=== PATIENT | male | born 1955 | race Caucasian/White ===

== ENCOUNTER 2025-09-03 11:17 | Outpatient (OUT) | payer MEDICARE, OTHER, SELFPAY ==
--- OUTSIDE RECORDS SUMMARY | 2025-09-02 10:13 | XMS_ITS | Continuity of Care Document ---
Author Organization [facility] Address [address] [place] [address] Phone Care Team Providers Care Second Vp Hr Assessment Name Role Phone Thierno Nesbitt DO Primary Care Provider Thierno Nesbitt DO Attending Provider Care Teams Patient Care Team Team Status: Active Member Role/Relationship Status Dates Thierno Nesbitt DO Primary Care Provider Active Patient Care Team Team Status: Inactive Member Role/Relationship Status Dates Thierno Nesbitt DO Primary Care Provider Active Start: September 02, 2025 End: September 02enjadivya Nesbitt DOAttending ProviderActiveStart: September 02, 2025 End: September 02, 2025 Chief Complaint and Reason for Visit Chief Complaint Admit Date Dizzy, Tired, Cov Neg September 02 2:15pm Reason for Visit Admit Date Chronic kidney disease September 02 2:15pm Heart failure with improved ejection fra ction (HFimpEF) September 02, 2025 2:15pm Nonischemic cardiomyopathy August 2:15pm PKD (polycystic kidney disease) September 02, 2025 2:15pm Allergies, Adverse Reactions, Alerts Allergen Type Severity Reaction Last Updated Verified Status No Known Allergies Allergy Unknown September 02, 2025 2:29pmYesActive Social History Smoking Status Status Start Date End Date Date of Observa tion Ex-smoker (finding) March 28, 2025 8:29am Observation Status Observation Response Date of Response Legal Sex Male (finding) Sex Assigned At [facility] 1955 Family History Relationship Condition Age at Onset Recorded Date/T janelle mother History of heart surgery Unknown Coronary artery diseaseUnknownHeart diseaseUnknownfatherCoronary artery disease UnknownMyocardial infarctionUnknownHypertensionUnknownHeart diseaseUnknown DeceasedUnknownbrotherHeart diseaseUnknownsisterDeceasedUnknownMultiple sclerosisUnknown Problems Active Problems Problem Diagnosis/Recorded Date Onset Date Status C omments Nicotine addiction March 25, 2024 5:01pm Unknown Activ e LDCT w/o suspicious nodules: 05/2023. 07/2024 Heart failure with improved ejection fraction (HFimpEF) September 18, 2024 9:10am Unknown Active Ec ho: LVEF 55%, dilated RV w/ normal function, RVSP - 04/2023 Encounter for screening for malignant neoplasm of prostate March 27, 2024 2:04pm Unknown Active Screening for colon cancerJune 2024 8:35amUnknownActivePKD (polycystic kidney disease)October 15, 2022 8:32amUnknownActiveAbdominal aortic aneurysm September 16, 2024 9:11amUnknownActiveCT: 3.9cm - 2021HypercholesterolemiaJune 2023 5:05pmUnknownActiveNonischemic cardiomyopathyFebruary 2024 5:04pmUnknownActiveLHC: trivial CAD - hronic kidney diseaseJune 2023 4:55pmUnknownActiveAscending aortic aneurysmFebruary 2024 5:03pm UnknownActiveEcho: 4.5cm - olon polypsMarch 2023 6:12amUnknown Active Medications Medication Status Dose Units Route Directions Qty Days Refills S tart Date Stop Date End Date Reason(s) Instructions Adherence Sod Picosulf-Mag Ox-Citric Ac (Clenpiq) 10 mg-3.5 gram- 12 gram/175 mL solution Discontinued 175 ML PO Daily 1 1 0 Ma [facility] 2023 11:00pm August 14, 2024 9:06amplease follow instructions provided by Dr. Lemus's office.Multivitamin WzijncZfcazp0BEMCNCuywwYbbkpuw 2022 12:00amComplies with drug therapyFurosemide 40 mg aekmcvXjlmbgerxjfw30BDVMIbmutStwiowy 2022 12:00amJune 2023 2:03pmCarvedilol 12.5 mg qvrhmwQzysyy97.5MGPOTwice daily October 15, 2022 12:00amComplies with drug therapyLisinopril 20 mg tablet Fzfrwlcinhpw97JEXFYjcrn dailyJanuary 2022 12:00amMarch 2023 6:01am Spironolactone 25 mg thbijpLmnngk06.5MGPODailyJanuary 2022 12:00amComplies with drug therapyEmpagliflozin (Jardiance) 10 mg xjpucqAuqijj15UDULTcxkh evening October 15, 2022 12:00amComplies with drug therapySacubitril-Valsartan (Entresto) 24-26 mg nfcryyFxcdly7ZDVYUPsscg dailyJanuary 2022 12:00amPt has medication but has not started taking yetComplies with drug therapyAspirin 81 mg ZsnnspvVexuis72OEGNTquvbFnouxto 2022 12:00amComplies with drug therapy Furosemide 40 mg ntxwefHvtnzooouoji81NNLG.QODJune 2023 1:53pmMay 2024 7:52amAmoxicillin-Pot Clavulanate 875-125 mg xiugnvKaxmxecifblh6FVANYLtzif 12 ihsxh7100Jxgs2023 11:00pmNov2023 9:04amAmoxicillin 875 mg hstezqUfobqe721XFGMJnkhr bhgzd5385Eajpmmdi2024 12:00amComplies with drug xushyurUgofxlow-Nuyqxzdae-He 3.5-10,000-1 mg/mL-unit/mL-% drops,suspensionActive 4DROPSOTICEvery 8 qepkj2614Vqoapxhk2024 12:00amComplies with drug therapy Immunizations Immunization Event Date Not Given Reason Dose Number Corporate Attorney Lot Number Reason(s) Given Vaccine Information Statement (VIS) Detail Administration Location COVID-19 Ad26.COV2.S ([employer]) December 13, 2020 COVID-19 Ad26.COV2.S ([employer])August 04, 2021Influenza vaccine, quadrivalent, [id number] vaccine, quadrivalent, adjuvanted September 19, 2023influenza, unspecified formulationOctober 2020 influenza, unspecified formulationDecember 2021influenza, unspecified formulationDecember neumococcal Conjugate Vaccine, 20 valentDeceer 2022 Vital Signs Vital Reading Result Reference Range Collection Date/Time Height 70 [in_i] September 02, 2025 2:89gaAcofhw22.27 kgNov2024 2:33pmHeart Rate97 /xhz88-492XoaavvtySeptember 02, 2025 2:33pmRespiratory rate12 /vay29-97Zffkddhs 24th, 2025 2:33pmBP Vevigann24 mm[Hg]100-140September 02, 2025 2:33pmBP Uwwcflksf46 mm[Hg]60-100September 02, 2025 2:33pmBMI (Body Mass Index)22.5 kg/q6Khrzuekf2024 2:33pm Advance Directives Advance Directive Response Recorded Date/ Time Advance Directives No October 12, 2022 12:11pm Insurance Providers Guarantor Abel Solomon Address [address] [place] [id number] Info.Home Phone: Payer Group Member ID Coverage Type Subscriber Relationship to Subscriber Effective Date Expiration Date MMO Retired Id: [id number] Beck , D Id: [id number] [facility] Home Phone: Email: [id number] Beck , D Id: [id number] [facility] Home Phone: Email: [email or web address] Encounters Encounter Location(s) Arrival/Admit Date Discharge/Departure Date Discharge/Departure Disposition Provider(s) Departed Physician/ Provider Office Visit -[facility] September 02, 2025 2:15pm September 02, 2025 3:12pm Discharged to home care or self care (routine discharge) Thierno Nesbitt DO Recent Diagnosis Onset Date Admit Date Chronic kidney disease Unknown September 02, 2025 2:15pm Heart failure with improved ejection fraction (HFimpEF) Unknown September 02, 2025 2:15pm Nonischemic cardiomyopathy Unknown 2024 2:15pm PKD (polycystic kidney disease) Unknown September 02, 2025 2:15pm Assessments Diagnosis Onset Date Resolution Status Admit Date Chronic kidney disease acuteNovember 2024 2:15pmHeart failure with improved ejection fraction (HFimpEF)acuteNovember 2024 2:15pmNonischemic cardiomyopathyacuteNovember 2024 2:15pmPKD (polycystic kidney disease)acuteNovember 2024 2:15pm Plan of Treatment Future Tests Future scheduled test information is unavailable Pending Tests Test Name Ordered Date Scheduled Date Comprehensive Metabolic Panel September 02 3:04pm Future Visits Future appointment information is unavailable Future Procedures Procedure Name Ordered Date Scheduled Date Complete Blood Count Auto Diff September 02 3:04pm Future Medications Future medication information is unavailable Patient Instructions Patient instructions are unavailable
--- OUTSIDE RECORDS SUMMARY | 2025-09-03 11:21 | XMS_ITS | Clinical Summary ---
Author Organization [facility] Address [address] [place] [address] Care Team Providers Care Retail Store Associate Name Role Phone Unavailable Primary Care Provider Unavailabl e Allergies No known active allergies Medications MedicationSigDispense QuantityRefillsLast FilledStart DateEnd DateStatus carvedilol (Coreg) 12.5 MG tablet Take 12.5 mg by mouth in the morning and 12.5 mg before bedtime.06/10/2023ctive Jardiance 10 MG Take 10 mg by mouth in the morning.05/12/2023ctive furosemide (Lasix) 40 MG tablet TAKE 1/2 TABLET BY MOUTH EVERY OTHER DAY05/24/2023ctive Entresto 24-26 MG tablet Take 1 tablet by mouth in the morning and 1 tablet before bedtime.07/02/2023 Active spironolactone (Aldactone) 25 MG tablet Take 25 mg by mouth in the morning.05/12/2023ctive Active Problems ProblemNoted DateDiagnosed FkcpMalxeypvikrt36/15/2023ge-related nuclear cataract of both eyes07/21/2023 Family History Medical HistoryRelationNameCommentsCataractsBrotherHypertensionBrother HypertensionFatherCataractsMotherHypertensionMotherHypertensionSisterRelation NameStatusCommentsBrotherFatherMotherSister Social History Tobacco UseTypesPacks/DayYears UsedDateSmoking Tobacco: FormerCigarettes Smokeless Tobacco: Never Tobacco Cessation:Counseling Given: Not Answered Sex and Gender InformationValueDate RecordedSex Assigned at BirthNot on file Legal JllCdid7606/30/2023 9:29 AM EDTGender IdentityNot on fileSexual Orientation Not on file Plan of Treatment Not on file Insurance
--- OUTSIDE RECORDS SUMMARY | 2025-09-03 11:21 | XMS_ITS | Clinical Summary ---
Author Organization [facility] Address [address] [place] [address] Phone Care Team Providers Care Bundling Machine Operator Name Role Phone Thierno Nesbitt Primary Care Provider Allergies No known active allergies Medications MedicationSigDispense QuantityRefillsLast FilledStart DateEnd DateStatus aspirin 81 mg EC tablet Take 1 tablet (81 mg) by mouth once daily.Active multivitamin tablet Take 1 tablet by mouth once daily.Active Entresto 24-26 mg tablet Indications:Chronic systolic CHF (congestive heart failure), NYHA class 1 (Multi),Hypertension, unspecified typeTake 1 tablet by mouth 2 times a day. 180 tablet ctive Jardiance 10 mg Indications:Chronic systolic CHF (congestive heart failure), NYHA class 1 (Multi),Hypertension, unspecified typeTake 1 tablet (10 mg) by mouth once daily. 90 tablet ctive spironolactone (Aldactone) 25 mg tablet Indications:Chronic systolic CHF (congestive heart failure), NYHA class 1 (Multi)Take 1 tablet (25 mg) by mouth once daily. 90 tablet 5Active carvedilol (Coreg) 12.5 mg tablet Indications:Hypertension, unspecified typeTake 1 tablet (12.5 mg) by mouth 2 times a day. 180 tablet ctive Active Problems ProblemNoted DateDiagnosed DateBMI 26.0-26.9,adult12/03/2024Stage 3a chronic kidney trygyvg1612/03/2024Nonischemic avdmqjkecaedym60/24/2025Medication course vqspvnk7812/03/2024Dilatation of thoracic aorta12/03/2024hronic systolic CHF (congestive heart failure), NYHA class Mixed knvrzupxguiqfb50/26/2024 Primary oetlxwdnwcsz29/26/2024Former hzfbup3612/05/2023 Encounters DateTypeDepartmentCare SoduXcfpwhwksgx70/02/[address] [place] [address] Brletic, Siobhan B, MANAGER BENEFIT Hypertension, unspecified typefrom Last 3 Months Immunizations ImmunizationAdministration DatesNext DueInfluenza Whole07/26/2008Influenza, Seasonal, Quadrivalent, Abasduqslq70/16/2022Influenza, Pbhdexgshcd88/11/2023, 09/24/2022neumococcal conjugate vaccine, 20-valent (PREVNAR 20)09/26/2023 Family History Medical HistoryRelationNameCommentsHeart diseaseBrotherHeart diseaseFatherHeart diseaseMotherRelationNameStatusCommentsBrotherFatherMother Social History Tobacco UseTypesPacks/DayYears UsedDateSmoking Tobacco: FormerCigarettesQuit: mokeless Tobacco: Never Tobacco Cessation:Counseling Given: Not Answered Alcohol UseStandard Drinks/WeekCommentsNever0 (1 standard drink = 0.6 oz pure alcohol)Sex and Gender InformationValueDate RecordedSex Assigned at BirthNot on fileLegal QgcYjbs59/26/2022 3:08 PM ESTGender IdentityNot on fileSexual OrientationNot on file Last Filed Vital Signs Vital SignReadingTime TakenCommentsBlood Mhuspgaz103/58012/03/2024 9:25 AM EST Efetu180312/03/2024 9:25 AM ESTTemperature--Respiratory Rate--Oxygen Saturation-- Inhaled Oxygen Concentration--Hdrmdk13 kg (183 lb)12/03/2024 9:25 AM ESTHeight 177.8 cm (5' 10 )12/03/2024 9:25 AM ESTBody Mass Index26.26012/03/2024 9:25 AM EST Plan of Treatment DateTypeDepartmentCare Team (Latest Contact Info)Ynruvtacxbw77/19/2026 9:00 AM ESTOffice Visit [facility] [address] [facility] [address] [place] [address] Lexi Grady MD [address] [facility] [address] [place] [address] Health MaintenanceDue DateLast DoneCommentsCT Cygaxbcpvnnf62/12/1956reatinine Level1955FIT-DNA (Cologuard)1955FIT1955Lipid Panel1955 Medicare Annual Wellness Visit (AWV)1955Potassium Level1955 Lpkzwvehvfkog55/12/1956MMR Vaccines (1 of 1 - Standard series)1956Diabetes Olutqmpny04/12/1974Hepatitis C Ocyustheu21/12/1974CKD: Urine Protein Screening 1974DTaP/Tdap/Td Vaccines (1 - Tdap)1977PSA Prostate Cancer Tuhvnrfas95/12/2006RSV High Risk: (Elderly (60+) or Population) (1 - Risk 50-74 years 1-dose series)2005Zoster Vaccines (1 of 2)2005 Abdominal Aortic Aneurysm (AAA) Tqbnsedyj85/12/5502Mpgzsdenrhpxqh88/24/2024 05/02/2023, 05/02/2023, 08/11/2022, Additional history existsInfluenza Vaccine (#1)/08/2023, 09/24/2022, 09/24/2022, Additional history exists COVID-19 Vaccine ( - season)/, 1Colonoscopy /4Colorectal Cancer Pmczhsntc51/11/2034Pneumococcal Vaccine Zycpvypio90/18/2023HIB VaccinesAged OutNo longer eligible based on patient's age to complete this topicHPV VaccinesAged OutNo longer eligible based on patient's age to complete this topicHepatitis A VaccinesAged OutNo longer eligible based on patient's age to complete this topicHepatitis B VaccinesAged OutNo longer eligible based on patient's age to complete this topicIPV VaccinesAged OutNo longer eligible based on patient's age to complete this topicMeningococcal VaccineAged OutNo longer eligible based on patient's age to complete this topic Rotavirus VaccinesAged OutNo longer eligible based on patient's age to complete this topic Procedures Procedure NamePriorityDate/TimeAssociated DiagnosisCommentsECHOCARDIOGRAM 05/02/2023 8:13 AM EDT from Last 3 Months or Most Recently Relevant to Health Maintenance Results * Echocardiogram (05/02/2023 8:13 AM EDT)Specimen (Source)Anatomical Location / LateralityCollection Method / VolumeCollection TimeReceived Time05/02/2023 8:13 AM EDT Narrative SYNGO - 05/03/2023 5:52 PM EDT [address], [place] [address] TRANSTHORACIC ECHOCARDIOGRAM REPORT Patient Name: ? ASHU RUBY Reading Physician: ?? [id number] Zeb Cárdenas MD Study Date: ? 05/02/2023 ?Referring Physician: ZEB CÁRDENAS MRN/PID: ?[id number] ? PCP: ? Thierno Ball Accession/Order#: [id number] Department Location: [facility] Date of : ?1955 ?Fellow: Gender: ? M ?Nurse: Admit Date: ?Aeronautical Products Sales Engineer: ? Asia Hart RDCS, RVT Height: ? 175.26 cm ?CC Report to: Weight: ? 77.57 kg ? Study Type: ?Echocardiogram BSA: ?1.93 m2 Blood Pressure: 122 /76 mmHg Diagnosis/ICD: I50.9-Heart failure, unspecified; R07.9-Chest pain, unspecified Indication: ?HTN, Hyperlipidemia, Former Smoker, Polycystic Kidney Disease, Nonischemic Cardiomyopathy Procedure/CPT: Echo Complete w Full Doppler-[id number] Study Detail: The following Echo studies were performed: 2D, M-Mode, Doppler and color flow. PHYSICIAN INTERPRETATION: Left Ventricle: Left ventricular systolic function is normal, with an estimated ejection fraction of 55%. There are no regional wall motion abnormalities. The left ventricular cavity size is normal. There is mild concentric left ventricular hypertrophy. Spectral Doppler shows a normal pattern of left ventricular diastolic filling. Left Atrium: The left atrium is normal in size. Right Ventricle: The right ventricle is moderately enlarged. There is normal right ventricular global systolic function. Right Atrium: The right atrium is mildly dilated. Aortic Valve: The aortic valve is trileaflet. There is trivial aortic valve regurgitation. The peakinstantaneous gradient of the aortic valve is 4.8 mmHg. The mean gradient of the aortic valve is 2.0 mmHg. Mitral Valve: The mitral valve is mildly thickened. There is mild mitral valve regurgitation. Tricuspid Valve: The tricuspid valve is structurally normal. There is trace tricuspid regurgitation. Pulmonic Valve: The pulmonic valve is not well visualized. There is no indication of pulmonic valveregurgitation. Pericardium: There is no pericardial effusion noted. Aorta: The aortic root is abnormal. There is moderate dilatation the aortic root. CONCLUSIONS: 1. Left ventricular systolic function is normal with a 55% estimated ejection fraction. 2. Moderately enlarged right ventricle. 3. There is moderate dilatation of the aortic root. QUANTITATIVE DATA SUMMARY: 2D MEASUREMENTS: Normal Ranges: Ao Root d: ? 4.50 cm ?(2.0-3.7cm) LAs: ? 3.70 cm ?(2.7-4.0cm) RVIDd: ? 4.50 cm ?(0.9-3.6cm) IVSd: ?1.30 cm ?(0.6-1.1cm) LVPWd: ? 1.10 cm ?(0.6-1.1cm) LVIDd: ? 4.90 cm ?(3.9-5.9cm) LVIDs: ? 3.50 cm LV Mass Index: 117.1 g/m2 LV % FS ?28.6 % LV SYSTOLIC FUNCTION BY 2D PLANIMETRY (MOD): Normal Ranges: EF-A4C View: 53.8 % (>=55%) LV DIASTOLIC FUNCTION: Normal Ranges: MV Peak E: ?0.44 m/s (0.7-1.2 m/s) MV Peak A: ?0.70 m/s (0.42-0.7 m/s) E/A Ratio: ?0.62 ? (1.0-2.2) MV lateral e' 0.06 m/s MV medial e' ??0.04 m/s E/e' Ratio: 7.20 (<8.0) MITRAL VALVE: Normal Ranges: MV Vmax: 0.76 m/s (<=1.3m/s) MV peak P.3 mmHg (<5mmHg) MV mean P.0 mmHg (<48mmHg) MITRAL INSUFFICIENCY: Normal Ranges: MR Vmax: 282.00 cm/s AORTIC VALVE: Normal Ranges: AoV Vmax: 1.09 m/s (<=1.7m/s) AoV Peak P.8 mmHg (<20mmHg) AoV Mean PG: ? 2.0 mmHg (1.7-11.5mmHg) LVOT Max Ritesh: 0.59 m/s (<=1.1m/s) AoV VTI: ? 27.90 cm (18-25cm) LVOT VTI: ?15.50 cm LVOT Diameter: ? 2.50 cm ??(1.8-2.4cm) AoV Area, VTI: ? 2.73 cm2 (2.5-5.5cm2) AoV Area,Vmax: ? 2.67 cm2 (2.5-4.5cm2) AoV Dimensionless Index: 0.56 AORTIC INSUFFICIENCY: AI Vmax: ? 3.02 m/s AI Half-time: ??906 msec AI Decel Rate: 97.60 cm/s2 TRICUSPID VALVE/RVSP: Normal Ranges: Peak TR Velocity: 2.35 m/s RV Syst Pressure: 25.1 mmHg (< 30mmHg) PULMONIC VALVE: Normal Ranges: PV Max Ritesh: 0.5 m/s ??(0.6-0.9m/s) PV Max PG: ??0.9 mmHg [id number] Zeb Cárdenas MD Electronically signed on 05/03/2023 at 5:52:44 PM Final Procedure Note Zeb Cárdenas MD - 05/03/[address], [address] [place] [address] TRANSTHORACIC ECHOCARDIOGRAM REPORT Patient Name: ASHU Mancilla Physician: [id number] Zeb Conde Study Date: 05/02/2023 Referring Physician: ZEB CÁRDENAS MRN/PID: [id number] PCP: Thierno Nesbitt Accession/Order#: [id number] Department Location: [facility] Date of : 1955 Fellow: Gender: M Nurse: Admit Date: Aeronautical Products Sales Engineer: Asia Hart [facility],T Height: 175.26 cm CC Report to: Weight: 77.57 kg Study Type: Echocardiogram BSA: 1.93 m2 Blood Pressure: 122 /76 mmHg Diagnosis/ICD: I50.9-Heart failure, unspecified; R07.9-Chest pain,unspecified Indication: HTN, Hyperlipidemia, Former Smoker, Polycystic KidneyDisease, Nonischemic Cardiomyopathy Procedure/CPT: Echo Complete w Full Doppler-[id number] Study Detail: The following Echo studies were performed: 2D, M-Mode,Doppler and color flow. PHYSICIAN INTERPRETATION: Left Ventricle: Left ventricular systolic function is normal, with anestimated ejection fraction of 55%. There are no regional wall motionabnormalities. The left ventricular cavity size is normal. There is mildconcentric left ventricular hypertrophy. Spectral Doppler shows a normalpattern of left ventricular diastolic filling. Left Atrium: The left atrium is normal in size. Right Ventricle: The right ventricle is moderately enlarged. There isnormal right ventricular global systolic function. Right Atrium: The right atrium is mildly dilated. Aortic Valve: The aortic valve is trileaflet. There is trivial aorticvalve regurgitation. The peak instantaneous gradient of the aortic valveis 4.8 mmHg. The mean gradient of the aortic valve is 2.0 mmHg. Mitral Valve: The mitral valve is mildly thickened. There is mild mitralvalve regurgitation. Tricuspid Valve: The tricuspid valve is structurally normal. There istrace tricuspid regurgitation. Pulmonic Valve: The pulmonic valve is not well visualized. There is noindication of pulmonic valve regurgitation. Pericardium: There is no pericardial effusion noted. Aorta: The aortic root is abnormal. There is moderate dilatation theaortic root. CONCLUSIONS: 1. Left ventricular systolic function is normal with a 55% estimatedejection fraction. 2. Moderately enlarged right ventricle. 3. There is moderate dilatation of the aortic root. QUANTITATIVE DATA SUMMARY: 2D MEASUREMENTS: Normal Ranges: Ao Root d: 4.50 cm (2.0-3.7cm) LAs: 3.70 cm (2.7-4.0cm) RVIDd: 4.50 cm (0.9-3.6cm) IVSd: 1.30 cm (0.6-1.1cm) LVPWd: 1.10 cm (0.6-1.1cm) LVIDd: 4.90 cm (3.9-5.9cm) LVIDs: 3.50 cm LV Mass Index: 117.1 g/m2 LV % FS 28.6 % LV SYSTOLIC FUNCTION BY 2D PLANIMETRY (MOD): Normal Ranges: EF-A4C View: 53.8 % (>=55%) LV DIASTOLIC FUNCTION: Normal Ranges: MV Peak E: 0.44 m/s (0.7-1.2 m/s) MV Peak A: 0.70 m/s (0.42-0.7 m/s) E/A Ratio: 0.62 (1.0-2.2) MV lateral e' 0.06 m/s MV medial e' 0.04 m/s E/e' Ratio: 7.20 (<8.0) MITRAL VALVE: Normal Ranges: MV Vmax: 0.76 m/s (<=1.3m/s) MV peak P.3 mmHg (<5mmHg) MV mean P.0 mmHg (<48mmHg) MITRAL INSUFFICIENCY: Normal Ranges: MR Vmax: 282.00 cm/s AORTIC VALVE: Normal Ranges: AoV Vmax: 1.09 m/s (<=1.7m/s) AoV Peak P.8 mmHg (<20mmHg) AoV Mean P.0 mmHg (1.7-11.5mmHg) LVOT Max Ritesh: 0.59 m/s (<=1.1m/s) AoV VTI: 27.90 cm (18-25cm) LVOT VTI: 15.50 cm LVOT Diameter: 2.50 cm (1.8-2.4cm) AoV Area, VTI: 2.73 cm2 (2.5-5.5cm2) AoV Area,Vmax: 2.67 cm2 (2.5-4.5cm2) AoV Dimensionless Index: 0.56 AORTIC INSUFFICIENCY: AI Vmax: 3.02 m/s AI Half-time: 906 msec AI Decel Rate: 97.60 cm/s2 TRICUSPID VALVE/RVSP: Normal Ranges: Peak TR Velocity: 2.35 m/s RV Syst Pressure: 25.1 mmHg (< 30mmHg) PULMONIC VALVE: Normal Ranges: PV Max Ritesh: 0.5 m/s (0.6-0.9m/s) PV Max P.9 mmHg [id number] Zeb Cárdenas MD Electronically signed on 05/03/2023 at 5:52:44 PM Final Authorizing ProviderResult TypeResult StatusWillrajni Cárdenas MDC ECHO PROCEDURESFinal ResultPerforming OrganizationAddressCity/State/ZIP CodePhone Number SYNGO from Last 3 Months or Most Recently Relevant to Health Maintenance Insurance * Guarantor: Malcolm Ruby TypeRelation to PatientDate of BirthPhone Billing AddressPersonal/RnjyhrMzhl60/12/1956 ([place]) [address] [place] [address] Care Teams Team MemberRelationshipSpecialtyStart DateEnd Thierno Nesbitt DO [facility] - General10/10/19
[2025-09-03 11:31] LABS: Hematocrit 34.2 % (42.0-54.0); Hemoglobin 11.3 g/dL (14.0-18.0); Immature Granulocytes Abs Auto 0.00 10^3/uL (0.00-0.03); Immature Granulocytes Pct Auto 0.0 % (0.0-0.5); Lymphocytes Absolute Auto 1.5 10^3/uL (1.2-3.8); Mean Corpuscular HGB Conc 33.0 g/dL (29.9-35.2); Mean Corpuscular Hemoglobin 31.2 pg (25.9-34.0); Mean Corpuscular Volume 94.5 fL (80.0-94.0); Platelet Count 297 10^3/uL (150-450); Red Blood Count 3.62 10^6/uL (4.70-6.10); White Blood Count 3.8 10^3/uL (4.0-11.0)
[2025-09-03 11:41] LABS: Alanine Aminotransferase 12 U/L (16-63); Albumin Globulin Ratio 0.3; Albumin Level 2.1 g/dL (3.4-5.0); Alkaline Phosphatase 71 U/L (46-116); Anion Gap 12.3; Aspartate Amino Transferase 14 U/L (15-37); Blood Urea Nitrogen 28.0 mg/dL (7.0-18.0); Calcium 11.3 mg/dL (8.5-10.1); Carbon Dioxide 27.1 mmol/L (21.0-32.0); Chloride 100 mmol/L (98-107); Estimated GFR (African America 36 (>=60 mL/min/1.73m^2); Estimated GFR (Non-African Ame 30 (>=60 mL/min/1.73m^2); Globulin 6.4 g/dL; Glucose 108 mg/dL (74-106); Potassium 4.4 mmol/L (3.5-5.1); Sodium 135 mmol/L (136-145); Total Protein 8.5 g/dL (6.4-8.2)
== END 2025-09-03 11:18 | disposition home or self-care (01) ==
LOC: LAB 11:17
PROVIDERS: PCP Internal Medicine; Visit Provider Internal Medicine
DX: I42.8 Other cardiomyopathies (principal); I50.32 Chronic diastolic (congestive) heart failure; N18.32 Chronic kidney disease, stage 3b; Q61.3 Polycystic kidney, unspecified
CPT/HCPCS: 36415; 80053; 85025

== ENCOUNTER 2025-09-27 11:58 | Emergency (ER) | payer MEDICARE, OTHER, SELFPAY ==
--- OUTSIDE RECORDS SUMMARY | 2024-04-25 08:00 | XMS_ITS ---
Author Organization [facility] Address [address] [place] [address] Care Team Providers Care Zoo Caretaker Name Role Phone Angeline Sewell Primary Care Provider REASON FOR VISIT NEW PT EXAM (bottom teeth infected) Encounters Encounter Location Date Provider Diagnosis [facility] [address] [place] [address] 04/25/2024 Angeline Sewell Plan Of Treatment No Information Progress Notes * MAYNOR RUBYDDOB:1955 (69 yo M)Acc No.[id number]:04/25/2024 Patient:?FLORI SILVIA :?Angeline Sewell DDSDOB:1955???Age:68 Y ???Sex:MaleDate:04/25/2024hone:[phone]:[address], [place] Subjective: * Chief Complaints: * N EW PT EXAM (bottom teeth infected) * Electronic signature of Angeline Sewell DDS on 09/27/2025 at 12:50 PM ESTSign off status: Pending * Provider: Tenzin Sewell DDS Date: 0 04/25/2024 Generated for Printing/Faxing/eTransmitting on:?09/27/2025 12:50 PM EST
--- OUTSIDE RECORDS SUMMARY | 2025-09-25 11:18 | XMS_ITS | Continuity of Care Document ---
Author Organization [facility] Address [address] [place] [address] Phone Care Team Providers Care Radial Dr[employer] Operator [employer] Name Role Phone Thierno Navarrete DO Primary Care Provider [phone] Thierno Navarrete DO Attending Provider Miladis Roblero MD Emergency Provider Lucy Brooks CMA Attending Provider Unavaila Janneth Dowling MD Attending Provider Thierno Navarrete DO Referring Provider [phone] Romy Ness MD Attending Provider Care Teams Patient Care Team Team Status: Active Member Role/Relationship Status Dates Thierno Navarrete DO Primary Care Provider Active Visit Care Team Team Status: Inactive Member Role/Relationship Status Dates Thierno Navarrete DO Primary Care Provider Active Start: September 02, 2025 End: September 02Yocasta Cruz ProviderActiveStart: September 02, 2025 End: September 02, 2025 Visit Care Team Team Status: Active Member Role/Relationship Status Dates Thierno Navarrete DO Primary Care Provider Active Start: September 03, 2025 Yocasta Wayne ProviderActiveStart: September 03, 2025 Visit Care Team Team Status: Inactive Member Role/Relationship Status Dates Thierno Navarrete DO Primary Care Provider Active Start: September 04, 2025 End: September 04christian Roblero MDEmejeane ProviderActiveStart: September 04, 2025 End: September 04, 2025 Visit Care Team Team Status: Active Member Role/Relationship Status Dates Thierno Navarrete DO Primary Care Provider Active Start: September 09, 2025 Lucylashay Brooks CMAAttending ProviderActiveStart: September 09, 2025 Visit Care Team Team Status: Inactive Member Role/Relationship Status Dates Thierno Navarrete DO Primary Care Provider Active Start: September 11, 2025 End: September 11jennifer Navarrete DOAttending ProviderActiveStart: September 11, 2025 End: September 11, 2025 Visit Care Team Team Status: Inactive Member Role/Relationship Status Donna Navarrete DO Primary Care Provider Active Start: September 17, 2025 End: September 17jennifer Navarrete DOAttending ProviderActiveStart: September 17, 2025 End: September 17, 2025 Visit Care Team Team Status: Inactive Member Role/Relationship Status Donna Navarrete DO Primary Care Provider Active Start: September 17, 2025 End: September 17jayson Torres MDAttending ProviderActiveStart: September 17, 2025 End: September 17, 2025 Visit Care Team Team Status: Inactive Member Role/Relationship Status Donna Navarrete DO Primary Care Provider Active Start: September 19, 2025 End: September 19jennifer Navarrete DOAttending ProviderActiveStart: September 19, 2025 End: September 19, 2025 Patient Care Team Team Status: Inactive Member Role/Relationship Status Donna Navarrete DO Primary Care Provider Active Start: September 25, 2025 End: September 25Bob Cruz ProviderActiveStart: September 25, 2025 End: September 25, 2025raulito Ness MDAttending ProviderActiveStart: September 25, 2025 End: September 25, 2025 Patient Care Team Team Status: Active Member Role/Relationship Status Donna Navarrete DO Primary Care Provider Active Start: September 25, 2025 Bob Wayne ProviderActiveStart: September 25, 2025 raulito Ness MDAttending ProviderActiveStart: September 25, 2025 Chief Complaint and Reason for Visit Chief Complaint Admit Date Dizzy, Tired, Cov Neg September 02 2:15pm low bp September 04, 2025 5:08pm Amb Documentation September 09, 2025 9 :05am ER follow up September 11, 2025 1 1:44am F17.211 September 17, 2025 1 :41pm Q61.3 N18.32 I50.20 September 17, 2025 1 :44pm testing results September 19, 2025 11:58am Neutropenia September 25, 2025 1:12pm Neutropenia September 25, 2025 1:14pm Reason for Visit Admit Date Abdominal aortic aneurysm September 02, 2025 2:15pm Chronic kidney disease September 02 2:15pm Heart failure with improved ejection fra ction (HFimpEF) September 02, 2025 2:15pm Nicotine addiction September 02, 2025 2:15pm Nonischemic cardiomyopathy August 2:15pm Orthostatic hypotension September 02 025 2:15pm PKD (polycystic kidney disease) September 02, 2025 2:15pm Abdominal aortic aneurysm September 11, 2025 11:44am Chronic kidney disease September 11 11:44am Heart failure with improved ejection fra ction (HFimpEF) September 11, 2025 11:44am Nicotine addiction September 11, 2025 1 1:44am Nonischemic cardiomyopathy September 11, 2025 11:44am Orthostatic hypotension September 11 11:44am PKD (polycystic kidney disease) September 11, 2025 11:44am Weight loss, intentional September 11, 025 11:44am Anemia September 11, 2025 1 1:44am Abdominal aortic aneurysm September 19, 2025 11:58am Chronic kidney disease September 19 11:58am Heart failure with improved ejection fra ction (HFimpEF) September 19, 2025 11:58am Lymphadenopathy September 19, 2025 11:58am Neutropenia September 19, 2025 11:58am Nicotine addiction September 19, 2025 11:58am Nonischemic cardiomyopathy September 11:58am PKD (polycystic kidney disease) September 19, 2025 11:58am Chronic kidney disease September 25 1:12pm Diffuse lymphadenopathy September 25 025 1:12pm Hypercalcemia September 25, 2025 1:12pm Malnutrition September 25, 2025 1:12pm Neutropenia September 25, 2025 1:12pm PKD (polycystic kidney disease) September 25, 2025 1:12pm Weight loss, intentional September 25, 2025 1:12pm Reason for Referral Type Reason(s) Provider Provider Contact Information P rosana Address Start Date Lymphadenopathy Neutropenia R59.1 - Generalized enlarged lymph nodes,D70.9 - Neutropenia, unspecified Lymphadenopathy Neutropenia R59.1 - Generalized enlarged lymph nodes,D70.9 - Neutropenia, unspecified Lymphadenopathy R59.1 - Generalized enlarged lymph nodesLymphadenopathy Unintended weight loss R59.1 - Generalized enlarged lymph nodes,R63.4 - Abnormal weight lossBryan Wayne Phone: [phone] [facility] [address]P64.1 - Generalized enlarged lymph nodes,D70.9 - Neutropenia, unspecifiedFredric Bryan Sutton Phone: [phone] [facility] [address] [facility] [address]Ysgrbbsz 2024R59.1 - Generalized enlarged lymph nodes,D70.9 - Neutropenia, unspecifiedAmy April Roth MDWork Phone: [phone] [facility] [address]Zoxjzjin 2024R59.1 - Generalized enlarged lymph nodes Bryan Haley Phone: [phone] [address] [address]Dhztnjwa 2024R59.1 - Generalized enlarged lymph nodes,R63.4 - Abnormal weight lossDetermined by PatientDececobre [facility] 2024 Allergies, Adverse Reactions, Alerts Allergen Type Severity Reaction Last Updated Verified Status No Known Allergies Allergy Unknown September 25, 2025 1:20pmYesActive Social History Smoking Status Status Start Date End Date Date of Observa tion Ex-smoker (finding) September 25, 2025 1:25pm Observation Status Observation Response Date of Response Legal Sex Male (finding) Sex Assigned At [facility] 1955 Family History Relationship Condition Age at Onset Recorded Date/T janelle mother History of heart surgery Unknown Coronary artery diseaseUnknownHeart diseaseUnknownfatherCoronary artery disease UnknownMyocardial infarctionUnknownHypertensionUnknownHeart diseaseUnknown DeceasedUnknownbrotherHeart diseaseUnknownsisterDeceasedUnknownMultiple sclerosisUnknown Problems Active Problems Problem Diagnosis/Recorded Date Onset Date Status C omments Weight loss, intentional September 11, 2025 9:49pm Unknown Active Nicotine addictionJune 2023 5:01pmUnknownActiveLDCT w/o suspicious nodules: 05/2023. 07/2024, CT: no nodules, hilar, mediastinal, axillary LN suspic ious for lymphoma - 09/2025Heart failure with improved ejection fraction (HFimpEF)September 18, 2024 9:10amUnknownActiveEcho: LVEF 55%, dilated RV w/ normal function, RVSP 25 - 04/2023Encounter for screening for malignant neoplasm of prostateJun2023 2:04pmUnknownActivePKD (polycystic kidney disease) October 15, 2022 8:32amUnknownActiveRenal US: PCK disease w/o obstruction, patent ureters - 09/2025Orthostatic hypotensionNovember 2024 10:09pm UnknownActiveAbdominal aortic aneurysmDecember 2023 9:11amUnknownActiveCT: 3.9cm - 2021, CT: cholelithiasis, mult hepatic cysts, Ao 4.5cm, enlarged inguinal LN - 09/2025HypercholesterolemiaJune 2023 5:05pmUnknownActive LymphadenopathyDecember 2024 1:28pmUnknownActiveNonischemic cardiomyopathy December 03, 2024 5:04pmUnknownActiveLHC: trivial CAD - hronic kidney diseaseJune 2023 4:55pmUnknownActiveNeutropeniaDecember 2024 1:34pm UnknownActiveDiffuse lymphadenopathyDecember 2024 2:25pmUnknownActive MalnutritionDecember 2024 2:26pmUnknownActiveColon polypsMarch 2023 6:12amUnknownActiveHypercalcemiaDecember 2024 2:26pmUnknownActive Inactive/Resolved Problems Problem Diagnosis/Recorded Date Onset Date Status C omments Acute hypotension September 04, 2025 7:31pm Unknown Re [facility] 2024 7:31pmUnknownResolvedAnemiaThe Medical Center 2024 7:31pmUnknownResolvedDehydrationThe Medical Center 2024 7:34pmUnknownResolved Medications Medication Status Dose Units Route Directions Qty Days Refills S tart Date Stop Date End Date Reason(s) Instructions Adherence Sod Picosulf-Mag Ox-Citric Ac (Clenpiq) 10 mg-3.5 gram- 12 gram/175 mL solution Discontinued 175 ML PO Daily 1 1 0 [place] [facility] 2023 11:00pm August 14, 2024 9:06amplease follow instructions provided by Dr. Lemus's office.Pantoprazole (Protonix) 40 mg tablet,delayed release (DR/EC)Discontinued 91CRFITcjsr78937Jsxzhiqx 2024 12:00amDecember 2024 1:21pm Multivitamin SkmizcYukkuh5KMVOIMdlokXmjuuko 2022 12:00amUnknownFurosemide 40 mg cqjkxtEaaurxfhuicx62FICYRmpttNliihdc 2022 12:00amJune 2023 2:03pmCarvedilol 12.5 mg hnxhcxIcgcef42.5MGPOTwice dailyJanuary 2022 12:00amUnknownLisinopril 20 mg bxkstzObfwlzyeznau04BZNXGtvvf dailyJanuary 2022 12:00amMarch 2023 6:01amSpironolactone 25 mg jgukwrHuvcgs75.5MGPO DailyJanuary 2022 12:00amUnknownEmpagliflozin (Jardiance) 10 mg tablet Srpzoh18QLLYHlbut eveningJanuary 2022 12:00amUnknownSacubitril-Valsartan (Entresto) 24-26 mg aqcrbpQsumfv8SBTASKkvxd dailyJanuary 2022 12:00amPt has medication but has not started taking yetUnknownAspirin 81 mg FtucbfrBqovcu03ON PODailyJanuary 2022 12:00amUnknownCarvedilol 3.125 mg tabletDiscontinued 3.125MGPOTwice jbaen89793Cabrxaky 2024 12:00amDecember 2024 1:21pm must administer with a meal/foodFurosemide 40 mg itbncjVhjnpnhzifgu66LUQG.QOD March 27, 2024 1:53pmMay 2024 7:52amAmoxicillin-Pot Clavulanate 875-125 mg zfoioeOxrbyzwsdcqu0MVYPGGhmrj 12 ounng9425Yotj 17th, 2024 11:00pmNovember 2023 9:04amAmoxicillin 875 mg sbxuzcUszbzeckerfd391TLQDHsmhk urted2825 September 02, 2025 12:00amDecember 2024 12:50okZwkztjuk-Vngnkhntu-Hc 3.5-10,000-1 mg/mL-unit/mL-% drops,efuqvpcitgTpxqbi3EIIBZIYYEUkame 8 ihsaa1723 September 02, 2025 12:00amUnknown Immunizations Immunization Event Date Not Given Reason Dose Number [employer] Lot Number Reason(s) Given Vaccine Information Statement (VIS) Detail Administration Location COVID-19 Ad26.COV2.S ([employer]) December 13, 2020 COVID-19 Ad26.COV2.S ([employer])August 04, 2021Influenza vaccine, quadrivalent, adjuvantedDecember [id number] vaccine, quadrivalent, adjuvanted September 19, 2023influenza, unspecified formulationOctober 2020 influenza, unspecified formulationDece2021influenza, unspecified formulationDeceer neumococcal Conjugate Vaccine, 20 valentDecember 2022 Procedures Procedure Date Performed Status CT abdomen pelvis wo con September 17, 2025 1:[address] lung screening September 17, 2025 1:48pm comp leted XR chest 2V* September 04, 2025 5:22pm compl eted Stool Occult Blood (ALFRED) September 04, 2025 com pleted US renal BI September 17, 2025 1:49pm comple elizabeth Relevant Diagnostic Tests and/or Laboratory Data Laboratory Results Test Collection Date/Time Result Date/Time Result Interpretation Reference Range Result Comment Performing Site Basophils # (Auto) September 03, 2025 11:23am September 03, 2025 11:23am 0.1 10 3/uL 0.0-0.1Anion GapSeptember 03, 2025 11:23amNovemb2024 11:23am12.3 Basophils (%) (Auto)September 03, 2025 11:23amNovemb2024 11:23am1.3 % 0.2-2.0Albumin/Globulin RatioN2024 11:23amNovemb2024 11:23am0.3Eosinophils # (Auto)September 03, 2025 11:23amNove2024 11:23am0.1 10 3/uL0.0-0.7AlbuminSeptember 03, 2025 11:23amNove2024 11:23am2.1 g/dLBelow low normal3.4-5.0Eosinophils (%) (Auto)September 03, 2025 11:23amNove2024 11:23am1.3 %0.9-7.0Alkaline PhosphataseSeptember 03, 2025 11:23amNove2024 11:23am71 U/O28-722CzsevbmzgpNdgzsdvb 25th, 2025 11:23amNove2024 11:23am34.2 %Below low fwcirt90.0-54.0Alanine Aminotransferase (ALT/SGPT)September 03, 2025 11:23amNove2024 11:23am12 U/LBelow low pfpsaj44-27YwpyhtbsrtFtuiakkw 25th, 2025 11:23amNove2024 11:23am11.3 g/dLBelow low odsekq87.0-18.0Aspartate Amino Transf (AST/SGOT)September 03, 2025 11:23amNove2024 11:23am14 U/LBelow low osyets06-03Bkscsksa Granulocyte # (Auto)September 03, 2025 11:23amNove2024 11:23am0.00 10 3/uL0.00-0.03BUN/Creatinine RatioNovemb2024 11:23amNovember 2024 11:23am12.6Immature Granulocyte % (Auto)September 03, 2025 11:23amNovember 2024 11:23am0.0 %0.0-0.5Blood Urea Nitrogen September 03, 2025 11:23amNovember 2024 11:23am28.0 mg/dLAbove high normal7.0-18.0Lymphocytes # (Auto)September 03, 2025 11:23amNovember 2024 11:23am1.5 10 3/uL1.2-3.8Calcium LevelNov2024 11:23amNovember 2024 11:23am11.3 mg/dLAbove high normal8.5-10.1Lymphocytes (%) (Auto)September 03, 2025 11:23amNoveer 2024 11:23am40.1 %20.5-60.0Chloride Level September 03, 2025 11:23amNovemb2024 11:86oh842 mmol/U61-573Qada Corpuscular HemoglobinNovember 2024 11:23amNovember 2024 11:23am31.2 pg25.9-34.0Carbon Dioxide LevelNovember 2024 11:23amNovember 2024 11:23am27.1 mmol/L21.0-32.0Mean Corpuscular Hemoglobin ConcentNovember 2024 11:23amNovemb2024 11:23am33.0 g/dL29.9-35.2CreatinineNovember 2024 11:23amNovemb2024 11:23am2.22 mg/dLAbove high normal 0.70-1.30Mean Corpuscular VolumeNovember 2024 11:23amNovemb2024 11:23am94.5 fLAbove high qpdvhy33.0-94.0Estimated GFR ()September 03, 2025 11:23amNovemb2024 11:09jb60Tzqua low normal>=60 mL/min/1.73m 2Monocytes # (Auto)September 03, 2025 11:23amNovember 2024 11:23am0.3 10 3/uL0.3-0.8Estimated GFR (Non- AmericanNov2024 11:23am September 03, 2024 11:54ar28Eijet low normal>=60 mL/min/1.73m 2Monocytes (%) (Auto)September 03, 2025 11:23amNovember 2024 11:23am8.6 %1.7-12.0 GlobulinNovember 2024 11:23amNovember , 2024 11:23am6.4 g/dLMean Platelet VolumeNovbanner [facility]on [facility] 2024 11:23amNovemb2024 11:23am9.8 fL 9.5-13.5Glucose LevelNovbanner cardon [facility]'s [facility] 2024 11:23amNovember 2024 11:92mq747 mg/dLAbove high zzeqvv89-731Tblplwibups # (Auto)September 03, 2025 11:23am September 03, 2025 11:23am1.9 10 3/uL1.4-6.5Potassium LevelNovbanner [facility]on [facility] 2024 11:23amNovemb2024 11:23am4.4 mmol/L3.5-5.1Neutrophils (%) (Auto) September 03, 2025 11:23amNovember 2024 11:23am48.7 %43.0-75.0Sodium LevelNovbanner [facility]on [facility] 2024 11:23amNovember 2024 11:98ys273 mmol/LBelow low uacnnp773-083Bqrpkrqy CountNovbanner cardon [facility]'s [facility] 2024 11:23amNovember 2024 11:96xl208 10 3/gD687-363Nxycx BilirubinNov2024 11:23amNovemb2024 11:23am0.5 mg/dL0.2-1.0Red Blood CountNovbanner cardon children's medical center 2024 11:23am September 03, 2025 11:23am3.62 10 6/uLBelow low normal4.70-6.10Total Protein September 03, 2025 11:23amNovember 2024 11:23am8.5 g/dLAbove high normal 6.4-8.2Red Cell Distribution WidthSeptember 03, 2025 11:23amNovember 2024 11:23am13.6 %11.0-15.0Corrected White Blood CountNov2024 11:23am September 03, 2025 11:23am3.8 10 3/uLBelow low normal4.0-11.0Corrected White Blood CountNovember 2024 5:50pmNovember 2024 6:11pm3.4 10*3/uLBelow low normal4.1-10.5F[facility] [id number] [address] [facility] [address]Vgsnfvlsn White Blood CountDecember 2024 2:32pmDecember 2024 3:34pm2.6 10*3/uLBelow low normal4.1-10.5FOhio[facility] [id number] [address] [facility] [address]Dtnfajbjrbr WBC CountNovember 2024 5:50pmNovember 2024 6:11pm3.4 10*3/uLBelow low normal4.1-10.5FOhio[facility] [id number] [address] [facility] [address]Bjlaorabojp WBC CountDecember 2024 2:32pmDecember 2024 9:33am2.6 10*3/uLBelow low normal4.1-10.5FOhio[facility] [id number] [address] [facility] [address]Tga Blood CountNovember 2024 5:50pmNovember 2024 6:11pm3.29 10*6/uLBelow low normal3.90-5.60[facility] [id number] [address] [facility] [address]Kpr Blood CountDecember 2024 2:32pmDecember 2024 3:34pm3.52 10*6/uLBelow low normal3.90-5.60[facility] [id number] [address] [facility] [address]GtouwkhpndVblisivc 2024 5:50pmNovember 2024 6:11pm 10.4 g/dLBelow low .0-17.0[facility] [id number] [address] [facility] [address]LqewabjjcbIagbnwef 2024 2:32pmDecember 2024 3:34pm 11.1 g/dLBelow low ijokhc18.0-17.0[facility] [id number] [address] [facility] [address]YsgankrixuGcbnngte 2024 5:50pmNovember 2024 6:11pm 30.4 %Below low konbjk91.8-50.0[facility] [id number] [address] [facility] [address]SnyuzguxicTgxrylba 2024 2:32pmDecember 2024 3:34pm 32.4 %Below low skyzvh59.8-50.0[facility] [id number] [address] [facility] [address]Isbi Corpuscular VolumeNovember 2024 5:50pmNovember 2024 6:11pm92.5 fL83.5-[address] [place] [address] Ctr [id number] [address] [facility] [address]Gcmy Corpuscular VolumeDecember 2024 2:32pmDecember 2024 3:34pm92.0 fL83.5-101[facility] [id number] [address] [facility] [address]Ioep Corpuscular HemoglobinNovember 2024 5:50pmNovember 2024 6:11pm31.7 pg27.5-35.2FOhio[facility] [id number] [address] [facility] [address]Zbsf Corpuscular HemoglobinDecember 2024 2:32pmDecember 2024 3:34pm31.6 pg27.5-35.2FOhio[facility] [id number] [address] [facility] [address]Cdwf Corpuscular Hemoglobin ConcentNovember 2024 5:50pm September 04, 2025 6:11pm34.3 g/dL32.5-35.6FOhio[facility] [id number] [address] [facility] [address]Ugmt Corpuscular Hemoglobin ConcentDecember 2024 2:32pm September 17, 2025 3:34pm34.3 g/dL32.5-35.6FOhio[facility] [id number] [address] [place] [address]Qto Cell Distribution WidthNovember 2024 5:50pmNovember 2024 6:11pm14.3 %12.0-14.8[facility] [id number] [address] [place] [address]Jpq Cell Distribution WidthDecember 2024 2:32pmDecember 2024 3:34pm14.2 %12.0-14.8[facility] [id number] [address] [place] [address]Rqsuomts CountNovember 2024 5:50pmNovember 2024 6:73iu678 10*3/cL708-214BhalkttajCincinnati Va Medical Center [facility] [id number] [address] [place] [address]Uyxyhaza CountDecember 2024 2:32pmDecember 2024 3:49xv282 10*3/tF446-141WwfkrjdwgCincinnati Va Medical Center [facility] [id number] [address] [place] [address]Gjoe Platelet VolumeNovember 2024 5:50pmNovember 2024 6:11pm8.2 fL6.6-10.1FOhio[facility] [id number] [address] [place] [address]Ribe Platelet VolumeDecember 2024 2:32pmDecember 2024 3:34pm7.8 fL6.6-10.1FOhio[facility] [id number] [address] [place] [address]Cwsewuvs Distribution WidthNovember 2024 5:50pmNov2024 7:01pm26.09 %Above high normal0.00-20.00The predictive value of MDW for identifying sepsis in patients with hematological abnormalities hasnot been establishedC[facility] [id number] [address] [facility] [address]Yrmvlxahdxm (%) (Auto)September 04, 2025 5:50pmNov2024 7:01pm41.1 %.[facility] [id number] [address] [facility] [place] [address]Gpgvyslpnkz (%) (Auto)September 17, 2025 2:32pmDecember 2024 10:00am34.5 %.[facility] [id number] [address] [facility] [address]Uxnwdtouqte (%) (Auto)September 04, 2025 5:50pmNov2024 7:01pm47.0 %.[facility] [id number] [address] [facility] [address]Aonjxfctmmi (%) (Auto)September 17, 2025 2:32pmDecember 2024 10:00am57.2 %.[facility] [id number] [address] [facility] [address]Nsfuwmtiq (%) (Auto)September 04, 2025 5:50pmNov2024 7:01pm8.6 %.[facility] [id number] [address] [facility] [place] [address]Cwfygobca (%) (Auto)September 17, 2025 2:32pmDecember 2024 10:00am6.2 %.[facility] [id number] [address] [facility] [place] [address]Htblocimaks (%) (Auto)September 04, 2025 5:50pmNov2024 7:01pm2.2 %.[facility] [id number] [address] [facility] [place] [address]Opktsygtsut (%) (Auto)September 17, 2025 2:32pmDecember 2024 10:00am0.6 %.[facility] [id number] [address] [facility] [address]Laigbpqta (%) (Auto)September 04, 2025 5:50pmNovember 2024 7:01pm1.1 %.[facility] [id number] [address] [facility] [address]Wappgtace (%) (Auto)September 17, 2025 2:32pmDecember 2024 10:00am1.5 %.[facility] [id number] [address] [facility] [address]Elhhzeqjg RBC Relative Count (auto)September 04, 2025 5:50pm September 04, 2025 7:01pm0.1 /100{WBC}0-0.5FOhio[facility] [id number] [address] [facility] [address]Hfvtlkocy RBC Relative Count (auto)September 17, 2025 2:32pm September 18, 2025 10:00am0.6 /100{WBC}Above high normal0-0.5FOhio[facility] [id number] [address] [facility] [address]Thulnejuuhb # (Auto)September 04, 2025 5:50pmNovember 2024 7:01pm1.4 10*3/uLBelow low normal1.8-7.7FOhio[facility] [id number] [address] [facility] [address]Ghdblzmoetz # (Auto)September 17, 2025 2:32pmDecember 2024 10:00am0.9 10*3/uLBelow low normal1.8-7.7FOhio[facility] [id number] [address] [facility] [address]Puovwwrvwbr # (Auto)September 04, 2025 5:50pmNovember 2024 7:01pm1.6 10*3/uL1.00-4.8[facility] [id number] [address] [facility] [address]Fpdnwpzmmvo # (Auto)September 17, 2025 2:32pmDecember 2024 10:00am1.5 10*3/uL1.00-4.8[facility] [id number] [address] [facility] [address]Ememhglpl # (Auto)September 04, 2025 5:50pmNovember 2024 7:01pm0.3 10*3/uL0.0-0.8[facility] [id number] [address] [facility] [address]Czqmfanpy # (Auto)September 17, 2025 2:32pmDecember 2024 10:00am0.2 10*3/uL0.0-0.8[facility] [id number] [address] [facility] [address]Djosurnntoo # (Auto)September 04, 2025 5:50pmNovember 2024 7:01pm0.1 10*3/uL0.0-0.45[facility] [id number] [address] [facility] [address]Cxsezsyozfw # (Auto)September 17, 2025 2:32pmDecember 2024 10:00am0.0 10*3/uL0.0-0.45[facility] [id number] [address] [facility] [address]Wvpuiatgm # (Auto)September 04, 2025 5:50pmNovember 2024 7:01pm0.0 10*3/uL0.0-0.2FOhio[facility] [id number] [address] [facility] [address]Qcayyjjkm # (Auto)September 17, 2025 2:32pmDecember 2024 10:00am0.0 10*3/uL0.0-0.2FOhio[facility] [id number] [address] [facility] [address]Rns Blood Cell MorphologyNovember 2024 5:50pmNovember 2024 7:01pmNormalNormLancaster Municipal [facility] [id number] [address] [facility] [address]Pou Blood Cell MorphologyDecember 2024 2:32pmDecember 2024 10:00amNormalNormLancaster Municipal Hospital [facility] [id number] [address] [facility] [address]EhzeobaomltcldDzzqscmc 26th, 2025 5:50pmNov2024 7:01pmSlightCincinnati Va Medical Center [facility]tr [id number] [address] [facility] [address]Ferezzej EstimateNovember 2024 5:50pmNov2024 7:01pmNormalNoMary [facility] [id number] [address] [facility] [address]Lhhqulxf EstimateDece2024 2:32pmDecember 2024 10:00amNormalNoMary [facility] [id number] [address] [facility] [address]Wxutxvyu Morphology CommentNov2024 5:50pmNov2024 7:01pmNormalUniversity Hospitals Health System [facility] [id number] [address] [facility] [address]Jhsglpzl Morphology CommentDece2024 2:32pmDecember 2024 10:00amNormalUniversity Hospitals Health System [facility] [id number] [address] [facility] 648[address]Vobpgmiawdc TimeNov2024 5:50pmSeptember 04, 2025 6:33pm12.9 s9.0-12.9A hematocrit value greater than 55% may lead to inaccurate results in coagulation testing. Patientshaving hematocrit values >55% require a special collection tube for coagulation studies. Please contact the laboratory at [phone] for redraw instructions.[facility] [id number] [address] [facility] [address]Nykvdvwkn Time International RatioNovember 2024 5:50pm September 04, 2025 6:33pm1.1INR Therapeutic Range A) Pre- and Peroperative OAT started two weeks before surgery. NOT HIP SURGERY: 1.5 - 2.5 HIP SURGERY: 2 - 3B) Primary and secondary prevention of venous THROMBOSIS: 2 - 3C) Active venous thrombosis, pulmonary embolismand prevention of recurrent venous thrombosis: 2 - 3D) Prevention of arterial thromboembolismincluding patients with mechanical heart valves: 3 - 4.5FOhioHealth [facility] [id number] [address] [facility] [address]Mkbhu ColorNovember 2024 7:15pmNovember 2024 7:36pm YellowYellowCincinnati Va [facility] Center [facility] [id number] [address] [facility] 974[address]Hueux ColorDecember 2024 2:32pmDecember 2024 2:56pm YellowYellowCincinnati Va Medical Center [facility] [id number] [address] [facility] [address]Wduht AppearanceNovember 2024 7:15pmNovember 2024 7:36pmClearClearCincinnati Va Medical Center [facility] [id number] [address] [facility] 78158Ztsow AppearanceDecember 2024 2:32pmDecember 2024 2:56pmClearClearCincinnati Va Medical Center [facility] [id number] [address] [facility] 790[address]Zushg Specific GravityNovember 2024 7:15pmNovember 2024 7:36pm1.0151.001-1.030[facility] [id number] [address] [place] [address] 81726Yezhb Specific GravityDecember 2024 2:32pmDecember 2024 2:56pm1.0171.001-1.030[facility] [id number] [address] [facility] [address]Jjevd pHNovember 2024 7:15pmNovember 2024 7:36pm5.5 5.0-9.0[facility] [id number] [address] [place] [address] 149[address]Gqgbo pHDecember 2024 2:32pmDecember 2024 2:56pm5.5 5.0-9.0[facility] [id number] [address] [facility] 30183Lfwfs Leukocyte EsteraseNovember 2024 7:15pmNovember 2024 7:36pmNegativeNegativeCincinnati Va Medical Center [facility] [id number] [address] [facility] 473[address]Ehnfy Leukocyte EsteraseDecember 2024 2:32pmDecember 2024 2:56pmNegativeNegativeFirBarnesville Hospital [facility]tr [id number] [address] [facility] 81966Afjhe NitriteNovember 2024 7:15pmNovember 2024 7:36pmNegativeNegativeFirBarnesville Hospital [facility]tr [id number] [address] [facility] 678[address]Uieak NitriteDecember 2024 2:32pmDecember 2024 2:56pm NegativeNegativeFirBarnesville Hospital [facility]tr [id number] [address] [facility] 032[address]Ipwtt ProteinNovember 2024 7:15pmNovember 2024 7:36pmTrace mg/dLAbove high normalNegativeCincinnati Va Medical Center [facility] [id number] [address] [facility] 363[address]Uqimw ProteinDecember 2024 2:32pmDecember 2024 2:56pm 30 mg/dLAbove high normalNegativeCincinnati Va Medical Center [facility] [id number] [address] [facility] [address]Hwnym Glucose (UA)September 04, 2025 7:15pmNovember 2024 7:39bu042 mg/dLAbove high normalNormalCincinnati Va Medical Center [facility] [id number] [address] [facility] 81819Vqxxh Glucose (UA)September 17, 2025 2:32pmDecember 2024 2:56pmNormal mg/dLNormalFirbowdles [facility] [id number] [address] [facility] 86232Tmebu KetonesNovember 2024 7:15pmNovember 2024 7:36pmNegativeNegativeFirBarnesville Hospital [facility]tr [id number] [address] [facility] 692[address]Vnztn KetonesDecember 2024 2:32pmDecember 2024 2:56pm NegativeNegativeFirBarnesville Hospital [facility]tr [id number] [address] [facility] 71387Uousd UrobilinogenNovember 2024 7:15pmNovember 2024 7:36pmNormal mg/dLNormalFirbowdles [facility] [id number] [address] [facility] 12067Ebteb UrobilinogenDecember 2024 2:32pmDecember 2024 2:56pmNormal mg/dLNormLancaster Municipal Hospital [facility] [id number] [address] [facility] 332[address]Desrp BilirubinNovember 2024 7:15pmNovember 2024 7:36pmNegativeNegativeCincinnati Va [facility] [id number] [address] [facility] 14508Frztc BilirubinDecember 2024 2:32pmDecember 2024 2:56pmNegativeNegativeCincinnati Va [facility] [id number] [address] [facility] 714[address]Bgiqe Occult BloodNovember 2024 7:15pmNovember 2024 7:36pm1+Above high normalNegativeCincinnati Va Medical Center [facility] [id number] [address] [facility] 38669Pctlk Occult BloodDecember 2024 2:32pmDecember 2024 2:56pmNegativeNegativeCincinnati Va [facility] [id number] [address] [facility] 60084Fcldy RBCNovember 2024 7:15pmNovember 2024 7:40pm 10-19 [HPF]Above high normal0-4FOhioHealth Pickerington [facility] [id number] [address] [facility] 17504Xlovd RBCDecember 2024 2:32pmDecember 2024 3:72ct4-8 [HPF]0-4FOhioHealth Pickerington [facility] [id number] [address] [facility] 73924Xiwbq WBCNovember 2024 7:15pmNovember 2024 7:40pm3- 4 [HPF]0-4FOhioHealth Pickerington [facility] [id number] [address] [facility] [address]Yiaoc WBCDecember 2024 2:32pmDecember 2024 3:93vd6-4 [HPF]0-4FOhioHealth Pickerington [facility] [id number] [address] [facility] 95155Djiyw Squamous Epithelial CellsNovember 2024 7:15pm September 04, 2025 7:82ew7-2 [HPF]0-2FOhioHealth [facility]erington [facility] [id number] [address] [facility] 42391Ewqtb Squamous Epithelial CellsDecember 2024 2:32pm September 17, 2025 3:03hb2-7 [HPF]0-2FOhioHealth Pickerington [facility] [id number] [address] [facility] 83997Avfky BacteriaNovember 2024 7:15pmNov2024 7:40pmRare [HPF]None [facility] [id number] [address] [facility] 74206Mickg BacteriaDecember 2024 2:32pmDecember 2024 3:00pmRare [HPF]None [facility] [id number] [address] [facility] 96759Flwsp Hyaline CastsNovember 2024 7:15pmNov2024 7:59sm9-1 [LPF]0-[facility] [id number] [address] [facility] 25841Fjvsh Hyaline CastsDecember 2024 2:32pmDecember 2024 3:00pmNone [LPF]0-[facility] [id number] [address] [facility] 050[address]Ruexk MucusNovember 2024 7:15pmNovember 2024 7:40pm Rare [LPF][facility] [id number] [address] [facility] 24413Lcllt MucusDecember 2024 2:32pmDecember 2024 3:00pm Rare [LPF][facility] [id number] [address] [facility] 29420Itxkamn LevelNovember 2024 5:50pmNovember 2024 6:52tr558 mg/dLAbove high ouyvpw11-300SER recommended reference rangeRandom Glucose Reference Range is dependent on time and content of last meal. Glucose of more than 200 mg/dL in a nonstressed, ambulatory subject supports the diagnosisof Diabetes Mellitus.[facility] [id number] [address] [facility] 29375Chnmcgl LevelDecember 2024 2:32pmDecember 2024 3:56pm 126 mg/dLAbove high yyqapu93-574SUC recommended reference rangeRandom Glucose Reference Range is dependent on time and content of last meal. Glucose of more than 200 mg/dL in a nonstressed, ambulatory subject supports the diagnosisof Diabetes Mellitus.[facility] [id number] [address] [facility] 51339Rmuwu Urea NitrogenNovember 2024 5:50pmNovember 2024 6:27pm28 mg/dLAbove high normal7-[facility] [id number] [address] [facility] 76404Zovzb Urea NitrogenDecember 2024 2:32pmDece2024 3:56pm23 mg/dL7-[facility] [id number] [address] [facility] 84850FosdnzaekkOzyyvmis 2024 5:50pmNovember 2024 6:27pm 1.89 mg/dLAbove high normal0.70-1.30[facility] [id number] [address] [facility] 07956YnkdplgozlVgldigpm 2024 2:32pmDecember 2024 3:56pm 1.70 mg/dLAbove high normal0.70-1.30[facility] [id number] [address] [facility] 85318Rugtvfpvs GFR (CKD-EPI)September 04, 2025 5:50pmNovember 2024 6:27pm37.953 mL/MinCincinnati Va Medical Center Ctr [id number] [address] [facility] 90278Rujpunvnw GFR (CKD-EPI)September 17, 2025 2:32pmDecember 2024 3:56pm43.099 mL/MinCincinnati Va Medical Center [facility]tr [id number] [address] [facility] 06644Jwwvcm LevelNovember 2024 5:50pmNovember 2024 6:34ug784 mmol/LBelow low znaotf022-413HdwjhwfrbCincinnati Va Medical Center [facility]tr [id number] [address] [facility] 72130Uxaavr LevelDecember 2024 2:32pmDecember 2024 3:56pm 129 mmol/LBelow low icgkfw640-871DlukussdaCincinnati Va Medical Center [facility]tr [id number] [address] [facility] 98349Oglduzjbz LevelNovember 2024 5:50pmNovember 2024 6:27pm3.6 mmol/L3.5-5.1FOhioHealth Pickerington [facility] [id number] [address] [facility] 92119Fbqwrgdxb LevelDeceer 2024 2:32pmDecember 2024 3:56pm4.3 mmol/L3.5-5.1FOhioHealth Pickerington [facility] [id number] [address] [facility] 540[address]Xlqkusim LevelNovember 2024 5:50pmNovember 2024 6:27pm99 mmol/Z78-257AgbcsuongCincinnati Va Medical Center [facility]tr [id number] [address] [facility] 88989Gxtexzpo LevelDecember 2024 2:32pmDecember 2024 3:56pm97 mmol/LBelow low aminuw45-428ZdnsfwyigCincinnati Va Medical Center [facility]tr [id number] [address] [facility] 60715Exlxaj Dioxide LevelNovember 2024 5:50pmNovember 2024 6:27pm22.6 mmol/L21.0-31.0[facility] [id number] [address] [facility] 83477Jmpyqf Dioxide LevelDecember 2024 2:32pmDecember 2024 3:56pm21.7 mmol/L21.0-31.0[facility] [id number] [address] [facility] 35017Ydnka GapNovember 2024 5:50pmNovember 2024 6:27pm 12.0 mEq/L6.0-15.0[facility] [id number] [address] [facility] 90793Ccfwj GapDecember 2024 2:32pmDecember 2024 3:56pm14.6 mEq/L6.0-15.0[facility] [id number] [address] [facility] 22547Qbaxggr LevelNovember 2024 5:50pmNovember 2024 6:27pm11.1 mg/dLAbove high normal8.6-10.3FOhioHealth [facility]erington [facility] [id number] [address] [facility] 97664Eqrgrux LevelDecember 2024 2:32pmDecember 2024 3:56pm 10.6 mg/dLAbove high normal8.6-10.3FOhioHealth Pickerington [facility] [id number] [address] [facility] 09550Iaqcxrspbs LevelDecember 2024 2:32pmDecember 2024 3:56pm3.0 mg/dL2.5-4.5FOhioHealth [facility]ering[facility] [id number] [address] [facility] 85736Ytvwesjbd LevelDecember 2024 2:32pmDecember 2024 3:56pm1.7 mg/dLBelow low normal1.9-2.7FOhioHealth Pickerington [facility] [id number] [address] [facility] 71809VeftaknOcefeumf 2024 2:32pmDecember 2024 3:56pm2.5 g/dLBelow low normal3.5-5.7FOhioHealth [facility]ering[facility] [id number] [address] [facility] 62873Qasg AcidDecember 2024 2:32pmDecember 2024 3:56pm7.3 mg/dL4.4-7.6FOhioHealth Pickerington [facility] [id number] [address] [facility] 84019Xoyizlpr I High SensitivityNovember 2024 6:47pmNovember 2024 7:27pm3 ng/L0-20The Troponin units of report have been changed to meet the Chest Pain Accreditation requirement, element EC5.M1l2. Troponin units are changed from pg/ml to ng/L. Also, the decimal is removed and results are in whole numbers.[facility] [id number] [address] [facility] 60209U-Dhmu Natriuretic PeptideNov2024 5:50pmNov2024 6:99sk507.0 pg/mLAbove high normal5-100[facility] [id number] [address] [facility] 5863837-Wsjiaic Vitamin D TotalDecember 2024 2:32pmDecember 2024 4:21pm56.6 ng/kH14-740WMVAHRP D STATUS 25(OH)VITAMIN D RANGE (ng/mL) Deficient <20 Insufficient 20 to <30Sufficient 30 to 100Reference: Mohsen MF,Fredy NC, Carmen ZULUAGA, et al. Evaluation,treatment, and prevention of vitamin D deficiency; an Endocrine Society clinical practice guideline. JCEM. 2010; 96(7):1911-30.[facility] [id number] [address] [facility] 76185Zctuuarkvhm Hormone (Intact)September 17, 2025 2:32p2024 4:10pm1.1 pg/mLBelow low lzintb63-08KkfgbaajiCincinnati Va Medical Center [facility] [id number] [address] [facility] 40598Ctadtcsd Creatinine Clearance (ChemNovember 2024 5:50pm September 04, 2025 6:27pm36.99[facility] [id number] [address] [facility] 89474Wacaftjh Creatinine Clearance (ChemDecember 2024 2:32pm September 17, 2025 3:56pmN/[facility] [id number] [address] [facility] 07257Jzcem Microalbumin mg/dlDecemb2024 2:32pmDecember 2024 7:25am6.6 mg/dLAbove high normal0.0-1.8[facility] [id number] [address] [place] [address] 20793Bvnus Random CreatinineDecember 2024 2:32pmDece2024 7:98to438.00 mg/dLNo reference range establishedCincinnati Va Medical Center Ctr [id number] [address] [place] [address] 67094Abedl Microalbumin/Creatinine RatioDeceer 2024 2:32pm September 18, 2025 7:25am42.6 mg/gAbove high normal0.0-30.030-300 mg/g indicates an increased risk for diabetic nephropathy. Greater than 300 mg/g is consistent with clinical nephropathy. (Am. J. Kidney Disease 1995, 25:107) [facility] [id number] [address] [place] [address] 08438Hoith Random Total ProteinDecember 2024 2:32p2024 7:72pi807 mg/dLAbove high normal0-9[facility] [id number] [address] [place] [address] 42346Xghas Protein/Creatinine RatioDeceer 2024 2:32p2024 7:96nx015 mg/g{Cre}Above high normal0-200[facility] [id number] [address] [place] [address] 13338 Microbiology Results Procedure Source Result Collection Date/Time Result Date/Time Result Comment Performing Site Stool Occult Blood (ALFRED) Stool September 04, 2025 6:16pmNov2024 7:09pmCincinnati Va Medical Center [facility] [id number] [address] [place] [address]21 Diagnostic Imaging Reports Author Yomi Ladd [facility] PrebleAuthoredNovember 2024 6:53pmReport Dictated Date/TimeDictated ByStatusRadiology ReportNov2024 6:53pm Glenny HardwickOur Lady of [facility] [address] [address] XRay Report Signed Patient: Ashu Gonzales MR#: [id number] : 1955 Acct:[id number] Age/Sex: 69 / M ADM Date: 5 Loc: ER Room: Type: [facility] ER Attending Dr: Copies to: Miladis Roblero MD~ Ordering Provider: Miladis Roblero MD Date of Service: 09/04/25 XR/XR chest 2V*: Weakness PA AND LATERAL CHEST: CLINICAL HISTORY: Low blood pressure, dizziness COMPARISON: 08/07/2024 FINDINGS: Unremarkable cardiomediastinal silhouette. Lungs clear. No effusion or pneumothorax. XR/XR chest 2V* IMPRESSION: NO ACUTE CARDIOPULMONARY ABNORMALITY. Impression dictated by: Yomi Ladd M.D. 09/04/2025 6:55 PM Dictation Location: [place] [address] Transcribed By: [facility] 09/04/251854 Dictated By: Yomi Ladd MD 09/04/251852 Signed By: <Electronically signed by Yomi Ladd MD in OV> 09/04/251854 Author Sylvester Diaz [facility] PrebleAuthoredDesage memorial hospital 2024 5:07pmReportDictated Date/TimeDictated ByStatusRadiology ReportDececobre valley regional medical center 2024 5:07pmSylvester Diaz [facility] [place] [address] [place] [address] CT Scan Report Signed Patient: Ashu Gonzales MR#: [id number] : 1955 Acct:[id number] Age/Sex: 69 / M ADM Date: 5 Loc: CT Room: Type: [facility] CLI Attending Dr: Thierno Navarrete DO Copies to: Thierno Navarrete DO~ Ordering Provider: Thierno Navarrete DO Date of Service: 09/17/25 CT/CT lung screening: F17.211 - Nicotine dependence, cigarettes, in remission CT Chest lung screening without contrast TECHNIQUE: Axial imaging with 2-D reconstruction. The CT exam was performed using one or more the following dose reduction techniques: Automated exposure control, adjustment of the MA and/or Kv according to patient size, or use of the iterative reconstruction technique. History: Lung screening. Dizziness. Follow-up assessment COMPARISON: 08/07/2024 THYROID: Unremarkable TRACHEA AND BRONCHI: Mild bronchial wall thickening ESOPHAGUS: Unremarkable. HEART: Within normal limits PERICARDIAL EFFUSION: Developing mild to moderate CORONARY ARTERY CALCIFICATION: None MEDIASTINUM: A developing mediastinal adenopathy PULMONARY LM: A developing hilar adenopathy. THORACIC AORTA Unremarkable LUNG NODULE None LUNGS: Mild scarring. PLEURAL EFFUSION: Developing small layering pleural effusions. PNEUMOTHORAX: No pneumothorax seen. CHEST WALL: No abnormality AXILLA:Developing extensive bilateral lymphadenopathy. Measurement up to 2 cm in short axis dimension. BONY STRUCTURES degenerative change UPPER ABDOMEN: Cholelithiasis. Polycystic kidney disease. Similar hepatic cyst. CT/CT lung screening IMPRESSION: No visible lung nodule. Development of the mediastinal, hilar and bilateral axillary lymphadenopathy. Primary concern for lymphoma. Developing small layering pleural effusions. FINAL ASSESSMENT: No developing lung nodule or mass. Development of mediastinal, hilar and axillary lymphadenopathy concerning for lymphoma. Small layering pleural effusions. Increasing pericardial effusion. Lung-RADS Version 1.0 Assessment Category: 1S REMARKS: Continued annual screening with LDCT in 12 months is recommended. Impression dictated by: Sylvester Diaz M.D. 09/17/2025 5:16 PM Dictation Location: [place] [address] Transcribed By: [facility] 09/17/251715 Dictated By: Sylvester Diaz DO 09/17/251706 Signed By: <Electronically signed by Sylvester Diaz DO in OV> 09/17/251715 Author Sylvester Diaz [facility] PrebleAuthoredRoxbury Treatment Center 2024 5:16pmReportDictated Date/TimeDictated ByStatusRadiology ReportDesage memorial hospital 2024 5:16pmMarlene OliverosompleteOur Lady of [facility] [place] [address] [place] [address] CT Scan Report Signed Patient: Ashu Gonzales MR#: [id number] : 1955 Acct:[id number] Age/Sex: 69 / M ADM Date: 5 Loc: CT Room: Type: [facility] CLI Attending Dr: Thierno Navarrete DO Copies to: Thierno Navarrete DO~ Ordering Provider: Thierno Navarrete DO Date of Service: 09/17/25 CT/CT abdomen pelvis wo con: I71.43 - Infrarenal abdominal aortic aneurysm, without ru... CT Abdomen and Pelvis withoutcontrast TECHNIQUE: Axial imaging with 2-D reconstruction. The CT exam was performed using one or more the following dose reduction techniques: Automated exposure control, adjustment of the MA and/or Kv according to patient size, or use of the iterative reconstruction technique. COMPARISON: None History: History of polycystic kidney disease. Lung screening performed demonstrating lymphadenopathy. History of dizziness. History of abdominal aortic aneurysm LIMITATIONS: None LOWER THORAX small layering low-density pleural effusions. Moderate pericardial effusion. LIVER: Multiple hepatic cysts up to 3 cm GALLBLADDER: Cholelithiasis. Nondistended gallbladder. BILE DUCTS: No dilatation SPLEEN: Unremarkable PANCREAS: Unremarkable ADRENAL GLANDS: Unremarkable KIDNEYS:Polycystic kidney changes. Right renal length up to 24 cm. Left renal length up to 18.6 cm AORTA: Fusiform distal abdominal aortic aneurysm measuring up to 4.5 cm. 17 mm prominence of the left common iliac artery with tortuosity. Left common iliac artery measuring up to 16 mm. Large volume of atherosclerosis throughout the aorta and branches. RETROPERITONEUM: There are multiple small retroperitoneal lymph nodes. Small iliac chain lymph nodes. MESENTERY:Unremarkable STOMACH:Unremarkable SMALL BOWEL: The small bowel loops are nondistended. APPENDIX: The appendix is normal. COLON: Nondistended. Left diverticulosis. URINARY BLADDER: Urinary bladder is unremarkable. REPRODUCTIVE SYSTEM: Reproductive structures are unremarkable. PNEUMOPERITONEUM: None PERITONEAL FLUID:Minimal low-density pelvic ascites. BONY STRUCTURES: Degenerative change ABDOMINAL WALL: Multiple large inguinal lymph nodes. Largest on the left has short axis dimension of 18 mm. Fat-containing intramuscular lesion of right anterior thigh musculature. The length up to 12 cm. Thickness up to [address]/CT abdomen pelvis wo con IMPRESSION: Polycystic kidney changes. Liver cysts. Cholelithiasis. Left: Diverticulosis. Trace pelvic ascites. Small retroperitoneal and iliac chain lymph nodes. The enlarged inguinal lymph nodes. Additional adenopathy is identified with a CT lung screening examination. Findings concerning for lymphoma versus chronic lymphocytic leukemia. 4.5 cm infrarenal abdominal aortic aneurysm. Impression dictated by: Sylvester Diaz M.D. 09/17/2025 5:25 PM Dictation Location: [place] [address] Transcribed By: [facility] 09/17/25 5820 Dictated By: Sylvester Diaz DO 09/17/251715 Signed By: <Electronically signed by Sylvester Diaz DO in OV> 09/17/251724 Author Sylvester Diaz [facility] PrebleAuthoredDesage memorial hospital 2024 5:25pmReportDictated Date/TimeDictated ByStatusRadiology ReportDececobre valley regional medical center 2024 5:25pmBo OliverosHENRY COUNTY H[facility] Main [place] [address] [place] [address] Ultrasound Report Signed Patient: Ashu Gonzales MR#: [id number] : 1955 Acct:[id number] Age/Sex: 69 / M ADM Date: 5 Loc: Room: Type: [facility] Attending Dr: Janneth Torres MD Ordering Provider: Janneth Torres MD Date of Service: 09/17/25 US/US renal BI: Q61.3 - Polycystic kidney, unspecified Copies to: Janneth Torres MD~ Bilateral Renal Ultrasound HISTORY: Polycystic kidney disease. Chronic kidney disease stage IIIB COMPARISON: None RIGHT kidney measures 25.2 cm. LEFT kidney measures 20.7 cm. Hydronephrosis: None RENAL STONE: No shadowing renal calculus is seen. RENAL LESIONS: Numerous anechoic cyst of both kidneys consistent with polycystic kidney disease. URINARY BLADDER: Bilateral ureteral jets. Urinary bladder wall thickening. Slight irregularity. No discrete mural nodule. Mild post void residual. REPRODUCTIVE STRUCTURES is approximately US/US renal BI IMPRESSION : Polycystic kidney disease. No hydronephrosis. Patent ureters. Impression dictated by: Sylvester Diaz M.D. 09/17/2025 5:27 PM Dictation Location: [place] [address] Tech: Mehnaz Brown Transcribed By: [facility] 09/17/251726 Dictated By: Sylvester Diaz DO 09/17/251724 Signed By: <Electronically signed by Sylvester Diaz DO in OV> 09/17/251726 Vital Signs Vital Reading Result Reference Range Collection Date/Time Height 70 [in_i] September 02, 2025 2:02noLvfojb14.27 kgNov2024 2:33pmHeart Rate97 /erf24-988SredazkcSeptember 02, 2025 2:33pmRespiratory rate12 /cgg33-63KnwxkbspSeptember 02, 2025 2:33pmBP Jvpbuixv91 mm[Hg]100-140September 02, 2025 2:33pmBP Mwwmxffdf68 mm[Hg]60-100September 02, 2025 2:33pmBMI (Body Mass Index)22.5 kg/c0CjzjfgcuSeptember 02, 2025 2:05miIzbbdv16 [in_i]September 04, 2025 5:40dfAutksv37.90 kgSeptember 04, 2025 5:15pmBody Nxiiubfcjkg21.6 [degF]97.6-99.0[facility]2024 5:14pm Heart Rate71 /rpn82-121YsofgxyzSeptember 04, 2025 7:06pmRespiratory rate16 /ysw82-24 September 04, 2025 7:06pmOxygen saturation by Pulse %95-100September 04, 2025 7:06pmBP Lknqourv822 mm[Hg]100-140September 04, 2025 7:06pmBP Ztcrqaivk80 mm[Hg]60-100September 04, 2025 7:49ogTteqrn58 [in_i]September 11, 2025 12:44mzDuauzw88.16 kgDeceer 2024 12:05pmHeart Rate62 /nsq14-216 September 11, 2025 12:05pmRespiratory rate12 /duc81-66XcszoxeuSeptember 11, 2025 12:05pm BP Akxuzqgd75 mm[Hg]100-140Decemb2024 12:05pmBP Wcthtbefa90 mm[Hg]60-100 September 11, 2025 12:05pmBMI (Body Mass Index)23.4 kg/h1Juvsgzgn2024 12:27hlJixlgq07 [in_i]September 19, 2025 12:19zsGizktw87.66 kgDeceer 2024 12:45pmHeart Ltrl006 /ftf45-527Sxeqmcnr 11th, 2025 12:45pmRespiratory rate 12 /vdc00-36Pngeeuyd 11th, 2025 12:45pmBP Clptlvtf87 mm[Hg]100-140Deceer 2024 12:45pmBP Pjjbbwayl66 mm[Hg]60-100Deceer 2024 12:45pmBMI (Body Mass Index)22.6 kg/n9Thsqgrlm 2024 12:17sbYdryml41 [in_i]September 25, 2025 1:42plDozwrq17.21 kgDesage memorial [facility] 2024 1:20pmBody Fxccoyrmoso50.7 [degF] 97.6-99.0[facility] 2024 1:20pmHeart Rate85 /awd61-464Nizzdsjo 2024 1:20pmRespiratory rate16 /xta69-28Txexjyou 2024 1:20pmOxygen saturation by Pulse xbodvkoe35 %95-1002024 1:20pmBP Knkynxps14 mm[Hg]100-140 September 25, 2025 1:20pmBP Flofzzmqw54 mm[Hg]60-100Deceer 2024 1:20pm BMI (Body Mass Index)22.5 kg/p4Luwagwdt 2024 1:22cfBzdzpw53 [in_i]September 25, 2025 1:00lhEmdbss60.21 kgDes[facility] 2024 1:20pm Advance Directives Advance Directive Response Recorded Date/ Time Advance Directives No October 12, 2022 12:11pm Insurance Providers Guarantor Raulito Solomon Address [address] [place] [address]Pygdbww Info.Home Phone: Coverage Status Update:2025 Payer Group Member ID Coverage Type Subscriber Relationship to Subscriber Effective Date Expiration Date [facility] [place] [id number] Beck , D Id: [id number] [address] [place] [address] Home Phone: Email: [email or web address] Beck , D Id: [id number] [address] [place] [address] Home Phone: Email: [email or web address] Encounter Location(s) Arrival/Admit Date Discharge/Departure Date Discharge/Departure Disposition Provider(s) Departed Physician/ Provider Office Visit -[facility] September 02, 2025 2:15pm September 02, 2025 3:12pm Discharged to home care or self care (routine discharge) Thierno Navarrete DO Non-patient / Non-visit -[facility] 03, 2025 11:23am Dianne Waynearted [facility] 5:08pm September 04, 2025 8:04pmDischarged to home care or self care (routine discharge)[facility] / [facility] 20[facility] 9:05amCathertyrone Brooks CMADeparted Physician/Provider [facility] 2024 1:04pmDischarged to home care or self care (routine discharge)Sergio Wayneed Clinical-CT Scan [facility] 2024 1:41pmDe[facility] 2024 1:42pmDischarged to home care or self care (routine discharge)Hamida Wayne Clinical- Ultrasound [facility] 1:45pm Discharged to home care or self care (routine discharge)Janneth Torres MD Departed Physician/Provider Office Visit-[facility] 20[facility] 11:[facility] 2024 1:15pmDischarged to home care or self care (routine discharge)Dianne Waynearted Physician/Provider [facility]- [facility] 2024 1:12pmDe[facility]cob[facility] 2024 4:17pm Discharged to home care or self care (routine discharge)MIGUEL Vincentegistered [facility]24 1:14pmRomy Ness MD Recent Diagnosis Onset Date Admit Date Abdominal aortic aneurysm Unknown Novemb er 2024 2:15pm Chronic kidney disease Unknown September 02, 2025 2:15pm Heart failure with improved ejection fraction (HFimpEF) Unknown September 02, 2025 2:15pm Nicotine addiction Unknown August 2:15pm Nonischemic cardiomyopathy Unknown Novem 2024 2:15pm Orthostatic hypotension Unknown September 02, 2025 2:15pm PKD (polycystic kidney disease) Unknown September 02, 2025 2:15pm Abdominal aortic aneurysm Unknown Decemb er 2024 11:44am Chronic kidney disease Unknown September 11, 2025 11:44am Heart failure with improved ejection fraction (HFimpEF) Unknown September 11, 2025 11:44am Nicotine addiction Unknown September 11, 2025 11:44am Nonischemic cardiomyopathy Unknown Decem 2024 11:44am Orthostatic hypotension Unknown September 11, 2025 11:44am PKD (polycystic kidney disease) Unknown September 11, 2025 11:44am Weight loss, intentional Unknown Decembe r 2024 11:44am Anemia Unknown September 11 11:44am Abdominal aortic aneurysm Unknown Decemb er 2024 11:58am Chronic kidney disease Unknown September 19, 2025 11:58am Heart failure with improved ejection fraction (HFimpEF) Unknown September 19, 2025 11:58am Lymphadenopathy Unknown September 19, 2 025 11:58am Neutropenia Unknown September 19, 025 11:58am Nicotine addiction Unknown September 11:58am Nonischemic cardiomyopathy Unknown Decem 2024 11:58am PKD (polycystic kidney disease) Unknown September 19, 2025 11:58am Chronic kidney disease Unknown September 25, 2025 1:12pm Diffuse lymphadenopathy Unknown September 25, 2025 1:12pm Hypercalcemia Unknown September 25, 2 025 1:12pm Malnutrition Unknown September 25, 2 025 1:12pm Neutropenia Unknown September 25 2 025 1:12pm PKD (polycystic kidney disease) Unknown September 25, 2025 1:12pm Weight loss, intentional Unknown Decembe r 2024 1:12pm Assessments Diagnosis Onset Date Resolution Status Admit Date Abdominal aortic aneurysm acuteNovember 2024 2:15pmChronic kidney diseaseacuteNovember 2024 2:15pmHeart failure with improved ejection fraction (HFimpEF)acuteNov2024 2:15pmNicotine addictionacuteSeptember 02, 2025 2:15pmNonischemic cardiomyopathyacuteNov2024 2:15pmOrthostatic hypotensionacute September 02, 2025 2:15pmPKD (polycystic kidney disease)acuteSeptember 02, 2025 2:15pmAbdominal aortic aneurysmacuteDecemb2024 11:44amChronic kidney diseaseacuteDecemb2024 11:44amHeart failure with improved ejection fraction (HFimpEF)acuteSeptember 11, 2025 11:44amNicotine addiction acutecemb2024 11:44amNonischemic cardiomyopathyacutecemb2024 11:44amOrthostatic hypotensionacutecemb2024 11:44amPKD (polycystic kidney disease)acuteSeptember 11, 2025 11:44amWeight loss, intentionalacute September 11, 2025 11:44amAnemiainactiveDeceer 2024 11:44amAbdominal aortic aneurysmacuteDecember 2024 11:58amChronic kidney diseaseacute September 19, 2025 11:58amHeart failure with improved ejection fraction (HFimpEF)acuteSeptember 19, 2025 11:58amLymphadenopathyacuteceer 2024 11:58amNeutropeniaacutecember 2024 11:58amNicotine addictionacute September 19, 2025 11:58amNonischemic cardiomyopathyacuteDecember 2024 11:58amPKD (polycystic kidney disease)acutecember 2024 11:58amChronic kidney diseaseacuteDecember 2024 1:12pmDiffuse lymphadenopathyacute September 25, 2025 1:12pmHypercalcemiaacuteDecember 2024 1:12pm MalnutritionacuteDecember 2024 1:12pmNeutropeniaacuteDecember 2024 1:12pmPKD (polycystic kidney disease)acuteDecember 2024 1:12pmWeight loss, intentionalacuteDecember 2024 1:12pm Plan of Treatment Author Thierno Navarrete [facility]bleAuthoredDeceer 2024 1:51pmContinue abstinence. They are aware of the hazards associated with tobacco use, including but not limited to respiratory infections, vascular disease and cancers. Scheduled for yearly LDCT chest for lung cancer screening is recommended. LDCT: no suspicious nodules, 05/2023, 07/2024 Denies CP, dyspnea, palpitations, orthopnea, PND or lower extremity edema. Instructed to push fluids and continue healthy diet. Instructed to rest I have instructed this patient on a low salt diet, exercise and daily weights. I have instructed them to notify the office for any on any unexpected weight gain > 3lbs and /or increased dyspneaon exertion, difficulty breathing during sleep, worsening lower extremity swelling, chest pain or lightheadedness. I have reviewed the GDMT with beta blockers, IDRIS/ARB or ARNI, MRA and a SGLT-2i. Instructed to restart Carvedilol at lower dose of 3.125mg bid Continue to hold Jardiance, Entresto and Aldactone f/u Cardiology Completed renal US to r/o obstruction. MRA brain completed to r/o cerebral aneurysm. Hydrate, control BP and avoid NSAIDs. f/u Nephrology as scheduled for serial labs. I instructed this patient on the benefits of adequate control of hypertension and diabetes, if appropriate. I have also instructed them to avoid use of NSAIDs due to the adverse effects on renal function. I instructed them on adequate fluid balance and to consume at least 48 oz of fluids daily. I also instructed them to monitor for an unexplained increase in weight and lower extremity edema. They have been instructed to notify the office for any changes or concerns. Holding Entresto and Aldactone due to worsening renal function and relative hypotension f/u Nephrology Strict control of BP Denies CP, abdominal or back pain. Recommend checking US for stability. CT: 3.9cm - 2021 CT: 4.5cm - 2024 Palpable cervical, axillary and inguinal lymphadenopathy. CT/CT lun09/17/2025 IMPRESSION: No visible lung nodule. Development of the mediastinal, hilar and bilateral axillary lymphadenopathy. Primary concern for lymphoma. Developing small layering pleural effusions. CT/CT abdomen pelvis wo con: 09/05/25 IMPRESSION: Polycystic kidney changes. Liver cysts. Cholelithiasis. Left: Diverticulosis. Trace pelvic ascites. Small retroperitoneal and iliac chain lymph nodes. The enlarged inguinal lymph nodes. Additional adenopathy is identified with a CT lung screening examination. Findings concerning for lymphoma versus chronic lymphocytic leukemia. 4.5 cm infrarenal abdominal aortic aneurysm. Refer to Heme/Onc for further evaluation and treatment Refer to General surgery for excisional biopsy of axillary or inguinal lymph nodes Instructed to monitor for fever or chills and to notify the office immediately. Instructed to avoid sick contacts. Author Romy Ness [facility]bleAuthoredDececobre [facility] 2024 2:30pmPlease see the HPI above for details, in summary patient with diffuse bilateral lymphadenopathy in the neck subclavian and axillary inguinal mediastinal and retroperitoneal concerning for malignancy in the setting of 25 pounds weight loss over 6 months. With loss of appetite without fevers chills or rigors or night sweats with history of polycystic kidney disease and chronic kidney disease and liver cyst as well was referred to us by PCP for further evaluation of the diffuse lymphadenopathy and neutropenia. Plan: Will obtain excisional lymph node biopsy by a surgeon. Refer him to surgery for that. Will obtain PET CT scan. Will obtain labs for peripheral blood flow cytometry, multiple myeloma labs, PRASAD, RF, IDRIS, Lyme titers, toxoplasmosis antibody since he has cats at home, HIV, chronic hepatitis panel, CBC with differential and CMP and beta-2 microglobulin. We also talked about patient on nutrition for the next week or 2 and if he fails gaining weight then next up will plan for feeding tube placement. Both patient and his agree with the plan. Will see him back for the results afterwards. Author Thierno Navarrete [facility]AuthoredNovb[facility] 2024 10:12pmCompleted renal US to r/o obstruction. MRA brain completed to r/o cerebral aneurysm. Hydrate, control BP and avoid NSAIDs. f/u Nephrology as scheduled for serial labs. I instructed this patient on the benefits of adequate control of hypertension and diabetes, if appropriate. I have also instructed them to avoid use of NSAIDs due to the adverse effects on renal function. I instructed them on adequate fluid balance and to consume at least 48 oz of fluids daily. I also instructed them to monitor for an unexplained increase in weight and lower extremity edema. They have been instructed to notify the office for any changes or concerns. Instructed to hold Jardiance I have instructed this patient on a low salt diet, exercise and daily weights. I have instructed them to notify the office for any on any unexpected weight gain > 3lbs and /or increased dyspneaon exertion, difficulty breathing during sleep, worsening lower extremity swelling, chest pain or lightheadedness. I have reviewed the GDMT with beta blockers, IDRIS/ARB or ARNI, MRA and a SGLT-2i. Instructed to hold Entresto tonight and call in morning w/ update prior to taking medications. Orders for CBC and CMP Denies CP, dyspnea, palpitations, orthopnea, PND or lower extremity edema. Instructed to push fluids and continue healthy diet. Instructed to rest and have labs drawn. Orders for CBC, CMP Strict control of BP Denies CP, abdominal or back pain. Recommend checking US for stability. CT: 3.9cm - 2021 Continue abstinence. They are aware of the hazards associated with tobacco use, including but not limited to respiratory infections, vascular disease and cancers. Scheduled for yearly LDCT chest for lung cancer screening is recommended. LDCT: no suspicious nodules, 05/2023, 07/2024 No s/s CHF, CP, abdominal pain, N/V/D or GI/ hemorrhage. Instructed to push fluids. Instructed to hold Entresto for tonight and call in morning w/ update on BP/HR prior to taking morning medications. Order for CBC, CMP Author Thierno Navarrete [facility]AuthoredDecebritt 2024 9:52pmNo s/s CHF, CP, abdominal pain, N/V/D or GI/ hemorrhage. Instructed to push fluids. He has resumed all his cardiac medications, despite instructions to hold. He has not restarted Spironolactone but can't explain why. He appeared dehydrated and improved somewhat after receiving IV fluids in the ER. He is mildly anemic but not enough to explain his hypotension. f/u Cardiology Denies CP, dyspnea, palpitations, orthopnea, PND or lower extremity edema. Instructed to push fluids and continue healthy diet. Instructed to rest He was instructed to hold his medications but has resumed all except his Spironolactone. Since SBP improved w/ resolution of lightheadedness, will not change medication at this time. I have instructed this patient on a low salt diet, exercise and daily weights. I have instructed them to notify the office for any on any unexpected weight gain > 3lbs and /or increased dyspneaon exertion, difficulty breathing during sleep, worsening lower extremity swelling, chest pain or lightheadedness. I have reviewed the GDMT with beta blockers, IDRIS/ARB or ARNI, MRA and a SGLT-2i. He has restarted all his cardiac medications after receiving IV fluid in the ER f/u Cardiology Completed renal US to r/o obstruction. MRA brain completed to r/o cerebral aneurysm. Hydrate, control BP and avoid NSAIDs. f/u Nephrology as scheduled for serial labs. I instructed this patient on the benefits of adequate control of hypertension and diabetes, if appropriate. I have also instructed them to avoid use of NSAIDs due to the adverse effects on renal function. I instructed them on adequate fluid balance and to consume at least 48 oz of fluids daily. I also instructed them to monitor for an unexplained increase in weight and lower extremity edema. They have been instructed to notify the office for any changes or concerns. Strict control of BP Denies CP, abdominal or back pain. Recommend checking US for stability. CT: 3.9cm - 2021 Continue abstinence. They are aware of the hazards associated with tobacco use, including but not limited to respiratory infections, vascular disease and cancers. Scheduled for yearly LDCT chest for lung cancer screening is recommended. LDCT: no suspicious nodules, 05/2023, 07/2024 Due for repeat LDCT Needs w/u for malignancy. He is due for his yearly LDCT chest He should have noncontrast CT abdomen. Will need EGD and colonoscopy to evaluate for anemia and weight loss Would check B12, FA and Ferritin to r/o vitamin deficiency. Will need CT abdomen/pelvis to evaluate for malignancy. Will need EGD and Colonoscopy for evaluation of anemia and weight loss Future Tests Future scheduled test information is unavailable Pending Tests Test Name Ordered Date Scheduled Date Angiotensin Converting Enzyme September 25 1:55pm 1 Days Beta 2 Microglobulin, Serum September 25, 2025 1:55pm 1 Days Comprehensive Metabolic Panel September 25 1:55pm 1 Days Hepatitis B Surface Antibody September 25, 2025 1:55pm 1 Days Rheumatoid Factor September 25, 2025 1:55pm 1 D ays Comprehensive Metabolic Panel September 02 3:04pm Future Visits Future appointment information is unavailable Future Procedures Procedure Name Ordered Date Scheduled Date PRASAD Antinuclear Antibodies September 25, 2025 1 :55pm 1 Days Complete Blood Count Auto Diff September 25 1:55pm 1 Days Flowcytometry Neogenomic September 25, 2025 1:5 5pm 1 Days Hepatitis B Core Antibody September 25, 2025 1: 55pm 1 Days Hepatitis B Surface Antigen September 25, 2025 1:55pm 1 Days Hep C Ab wRfx to Qnt PCR September 25, 2025 1:5 5pm 1 Days HIV 1/O/2 Antigen/Antibody September 25, 2025 1 :55pm 1 Days PET tumor init tx strat sb-mt September 25 1:55pm 1 Days Lyme, Total Ab with Reflex September 25, 2025 2 :01pm 1 Days Toxoplasma Gondii Abs, IgG Qn September 25 2:00pm 1 Days Toxoplasma Gondii Abs, IgM Qn September 25 2:00pm 1 Days Complete Blood Count Auto Diff September 02 3:04pm Future Medications Future medication information is unavailable Patient Instructions Instruction Admit Date Dehydration in adults - ED discharge ins tructions September 04, 2025 5:08pm Hospital Discharge Instructions Ambulatory Orders* Referral to General Surgery Time Frame: 09/25/25, Location: None Selected * RISE Order Time Frame: 09/25/25, Location: None Selected Progress Note Author Romy Ness [facility] PrebleNote Date/TimeDecember 2024 2:30pm [facility] [place] [address] Cancer Center Note Signed Patient: Ashu Gonzales MR#: [id number] : 1955 Acct:[id number] Age/Sex: 69 / M Type: REG AMB Date of Service: 09/25/25 Copies to: Thierno Navarrete DO~ Assessment & Plan A/P (1) Diffuse lymphadenopathy: (2) Weight loss, intentional: (3) Neutropenia: (4) Hypercalcemia: (5) Chronic kidney disease: (6) PKD (polycystic kidney disease): (7) Malnutrition: Plan Please see the HPI above for details, in summary patient with diffuse bilateral lymphadenopathy in the neck subclavian and axillary inguinal mediastinal and retroperitoneal concerning for malignancy in the setting of 25 pounds weight loss over 6 months. With loss of appetite without fevers chills or rigors or night sweats with history of polycystic kidney disease and chronic kidney disease and liver cyst as well was referred to us by PCP for further evaluation of the diffuse lymphadenopathy andneutropenia. Plan: Will obtain excisional lymph node biopsy by a surgeon. Refer him to surgery forthat. Will obtain PET CT scan. Will obtain labs for peripheral blood flow cytometry, multiple myeloma labs, PRASAD, RF, IDRIS, Lyme titers, toxoplasmosis antibody since he has cats at home, HIV, chronic hepatitis panel, CBC with differential and CMP and beta-2 microglobulin. We also talked about patient on nutrition for the next week or 2 and if he failsgaining weight thennext up will plan for feeding tube placement. Both patient and his agree with the plan. Will see him back for the results afterwards. Orders: Orders PET tumor init tx strat sb-mt 1 Day D70.8 - Other neutropenia, R59.1 - Generalized enlarged lymph nodes, R59.9 - Enlarged lymph nodes, unspecified, R63.4 - Abnormal weight loss, Z01.89 - Encounter for other specified special examinations PRASAD Antinuclear Antibodies 1 Day D70.8 - Other neutropenia, R59.1 - Generalizedenlarged lymph nodes, R63.4 - Abnormal weight loss Angiotensin Converting Enzyme 1 Day D70.8 - Other neutropenia, R59.1 - Generalized enlarged lymph nodes, R63.4 - Abnormal weight loss Hepatitis B Core Antibody 1 Day D70.8 - Other neutropenia, R59.1 - Generalized enlarged lymph nodes, R63.4 - Abnormal weight loss Comprehensive Metabolic Panel 1 Day D70.8 - Other neutropenia, R59.1 - Generalized enlarged lymph nodes, R63.4 - Abnormal weight loss Toxoplasma Gondii Abs, IgM Qn 1 Day D70.8 - Other neutropenia, R59.1 - Generalized enlarged lymph nodes Lyme, Total Ab with Reflex 1 Day D70.8 - Other neutropenia, R59.1 - Generalizedenlarged lymph nodes Flowcytometry Neogenomic 1 Day D70.8 - Other neutropenia, R59.1 - Generalized enlarged lymph nodes,R63.4 - Abnormal weight loss Rheumatoid Factor 1 Day D70.8 - Other neutropenia, R59.1 - Generalized enlargedlymph nodes, R63.4 -Abnormal weight loss Beta 2 Microglobulin, Serum 1 Day D70.8 - Other neutropenia, R59.1 - Generalized enlarged lymph nodes, R63.4 - Abnormal weight loss Hepatitis B Surface Antigen 1 Day D70.8 - Other neutropenia, R59.1 - Generalized enlarged lymph nodes, R63.4 - Abnormal weight loss Hepatitis B Surface Antibody 1 Day D70.8 - Other neutropenia, R59.1 - Generalized enlarged lymph nodes, R63.4 - Abnormal weight loss Hep C Ab wRfx to Qnt PCR 1 Day D70.8 - Other neutropenia, R59.1 - Generalized enlarged lymph nodes,R63.4 - Abnormal weight loss HIV 1/O/2 Antigen/Antibody 1 Day D70.8 - Other neutropenia, R59.1 - Generalized enlarged lymph nodes, R63.4 - Abnormal weight loss Complete Blood Count Auto Diff 1 Day D70.8 - Other neutropenia, R59.1 - Generalized enlarged lymph nodes, R63.4 - Abnormal weight loss Toxoplasma Gondii Abs, IgG Qn 1 Day D70.8 - Other neutropenia, R59.1 - Generalized enlarged lymph nodes Referrals Referral to General Surgery R59.1 - Generalized enlarged lymph nodes RISE Order R59.1 - Generalized enlarged lymph nodes, R63.4 - Abnormal weight loss Patient Instructions: PET scan refer to surgery for excisional biopsy flow,hiv,hep panel,myeloma labs,prasad,rf,idris,b2mg 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 Was sent by Dr. Thierno navarrete his primary provider. He has a history of nonischemic cardiomyopathy, heart failure with improved ejection fraction as reported in the medical record,history of chronic kidney disease stage IIIb, polycystic kidney disease, hypertension hyperlipidemia and history ofcolon polyps who had AAA and tobacco smoking presented on 09/02/2025 to his primary care office forthe fatigue dizziness and decreased appetite with the weight loss that developed over 3 weeks.. Theweight loss was 25 pounds over 6 months. No associated chest pain or shortness of breath or abdominal pain or reported fever or night sweats. He had a CT of the abdomen and pelvis on 09/05/2025 which revealed polycystic kidney disease with liver cyst cholelithiasis and diverticulosis with a trace amount of pelvic ascites. There or small retroperitoneal and iliac chain lymph nodes. There are enlarged inguinal lymph nodes as well. Finding concerning forlymphoma. There is a 4.[address] of lung on 09/17/2025 revealed mediastinal hilar and bilateral axillary lymphadenopathy concerning for lymphoma. Some or small layering pleural effusion and no parenchymal lung nodules or lesions. Renal ultrasound done on 09/17/2025 revealed polycystic kidney disease no hydronephrosis patent ureters no reported masses in the kidneys. Labs were were obtained On 09/17/2025 and 09/04/2025 which revealed leukopenia with WBC ranging 2.6-3.4 with neutropenia ANC of 0.9-1.4 rest of the WBC differential are unremarkable. Nucleated RBCs 0.1-0.6. Anemia mild hemoglobin 11.1-10.4 and normal platelet count normal RBC indices. Sodium is slightly low 1 29-30. Creatinine is chronically abnormal 1.7-1.9. On average. Calcium is high 10.6-11.3 with uric acid 7.3 normal. Total protein is high 8.5 and albuminis low 2.5 PTH is low 1.1 vitamin D is normal at 56. Patient last colonoscopy was in December 2023 was with poor preparation however he had a polypectomy in the colonoscopy in 2019. Family history beside cardiac issues no reported malignancies. He has a sister with multiple sclerosis. Social history is never smoked and does not currently drink alcohol. Review of system is positive for intermittent nausea, 25 pounds weight loss, fatigue, loss of appetite, dizziness, he was not aware of enlarged lymph node until that was pointed out by his primary care physician and by me today which is diffuse in the axillary areas bilateral cervical areas right subclavian area and bilateral inguinal areas. He denied any chest pain or shortness of breath or dysphagia and denied any abdominal pain however he had microscopic hematuria. He denied any gross hematuria. In general he feels with generalized fatigue and that is coming down to help. Intake Vitals/Pain Assessment 09/25/25 13:20 Height 5 ft 10 in Weight 71.214 kg BMI 22.5 Body Fat % 37.53 BP 93/64 L Blood Pressure Location Rt brachial Position Sitting Temp 97.7 F Pulse 85 Pulse Source NIBP Respiration 16 Pulse Oximetry (%) 97 Oxygen Delivery Method room air Are you having pain? No Intake Visit Reasons: Neutropenia Accompanied by: Spouse Allergies No Known Allergies Allergy (Verified 09/25/25 13:20) Home Medications - Last Reconciled 09/25/25 by BRIAN Aleman aspirin 81 mg PO DAILY carvedilol 12.5 mg PO BID empagliflozin (Jardiance) 10 mg PO QPM multivitamin 1 tab PO DAILY lyhcnjny-mbrjntdbr-PP 3.5-10,000-1 mg/mL-unit/mL-% 4 drps otic (ear) Q8HR 7 days sacubitril-valsartan 24-26 mg (Entresto) 1 tab PO BID spironolactone 12.5 mg PO DAILY Gastrointestinal Is the patient taking opioids for pain control?: No Bowel Protocol for Opioids Given: No Bowel Pattern: Regular Bowel Movement Aid(s): None Falls Fall Precaution Measures Taken: Patient in chair Nurse's Note: Patient is referred by Dr Thierno Navarrete for neutropenia. Last labs from 09/17/2025. [facility] History Attestation statement: The following information was validated with the patient. Medical History Medical History (Updated 09/25/25 @ 14:26 by Romy Ness MD) Malnutrition Hypercalcemia Diffuse lymphadenopathy Neutropenia Lymphadenopathy Weight loss, intentional Orthostatic hypotension Nonischemic cardiomyopathy LHC: trivial CAD - 10/2022 Heart failure with improved ejection fraction (HFimpEF) Echo: LVEF 55%, dilated RV w/ normal function, RVSP 25 - 04/[address]: 3.9cm - 2021, CT: cholelithiasis, mult hepatic cysts, Ao 4.5cm, enlarged inguinal LN - 09/2025 Encounter for screening for malignant neoplasm of prostate Hypercholesterolemia Nicotine addiction LDCT w/o suspicious nodules: 05/2023. 07/2024, CT: no nodules, hilar, mediastinal, axillary LN suspicious for lymphoma - 09/2025 Chronic kidney disease History of colon polyps Colon polyps Former smoker Pulmonary edema Back pain Arthritis PKD (polycystic kidney disease) Renal US: PCK disease w/o obstruction, patent ureters - 09/2025 GERD (gastroesophageal reflux disease) Hypertension Hyperlipidemia borderline CHF (congestive heart failure) Surgical History Surgical History H/O colonoscopy (~12/2023) 2019 polypectomy, 12/2023 w/ poor prep Hx of cardiac cath (~2022) History of cataract extraction History of tonsillectomy Family History Family History Mother History of heart surgery Coronary heart disease Heart disease Father Coronary heart disease Myocardial infarction Hypertension Heart disease Brother Heart disease Legacy FamHx Relation: Brother(s) Sister Multiple sclerosis Social History Social History (Updated 09/25/25 @ 13:25 by BRIAN Aleman) Smoking status: Former smoker What tobacco products do you use: cigarettes Smoking quit date/years:<= 15 years ago Nicotine containing products detail: Do you use smokeless tobacco? no Second hand tobacco smoke exposure: No Within the past year, how often did you have a drink containing alcohol: never Within the past year, how often did you have six or more drinks on one occasion: never AUDIT-C Alcohol total score: 0 AUDIT-C Alcohol score interpretation: A score less than 4 is consistent with normal alcohol consumption. In the past 12 months, have you used illegal drugs or prescription drugs for non-medical reasons?: No Review of Systems ROS Details: All systems reviewed & no additional complaints except as documented See HPI above. Physical Exam EXAM HEENT normocephalic atraumatic pupils are equal and round Neck supple without thyromegaly. Patient has bilateral cervical posterior lymphadenopathy more on the right than the left side and also right subclavian lymphadenopathy. Chest clear to auscultation bilaterally without wheezing crackles or rhonchi Heart regular rate and rhythm S1-S2 without murmurs Abdomen soft nontender not distended without hepatosplenomegaly or masses clinically Extremities no edema of the lower extremities Skin without any suspicious rashes Lymphatic system he had bilateral cervical lymphadenopathy as stated above, right subclavian lymphadenopathy, bilateral axillary lymphadenopathy and bilateral multiple inguinal lymphadenopathy variable in size from 1 cm to event 4 cm in those areas. Neurological exam patient is cooperative alert and oriented x3 no focal deficits. [facility] - [facility] LAB RESULTS Corrected WBC, (4.1-10.5) 2.6 X10E3/uL L 09/17/25, 14:3 2 Hgb, (13.0-17.0) 11.1 g/dL L 09/17/25, 14:32 Hct, (38.8-50.0) 32.4 % L 09/17/25, 14:32 MCV, (83.5-101) 92.0 fl 09/17/25, 14:32 RDW, (12.0-14.8) 14.2 % 09/17/25, 14:32 Plt Count, (150-450) 260 x10E3/uL 09/17/25, 14:32 Sodium, (136-145) 129 mmol/L L 09/17/25, 14:32 Potassium, (3.5-5.1) 4.3 mmol/L 09/17/25, 14:32 BUN, (7-25) 23 mg/dL 09/17/25, 14:32 Creatinine, (0.70-1.30) 1.70 mg/dL H 09/17/25, 14:32 Glucose, (70-100) 126 mg/dL H 09/17/25, 14:32 Est GFR (CKD-EPI) 43.099 mL/Min 09/17/25, 14:32 Calcium, (8.6-10.3) 10.6 mg/dL H 09/17/25, 14:32 Total Bilirubin, (0.2-1.0) 0.5 mg/dL 09/03/25, 11: 23 AST, (15-37) 14 U/L L 09/03/25, 11:23 ALT, (16-63) 12 U/L L 09/03/25, 11:23 Alkaline Phosphatase, (46-116) 71 U/L 09/03/25, 11:23 Total Protein, (6.4-8.2) 8.5 g/dL H 09/03/25, 11:23 Albumin, (3.5-5.7) 2.5 gm/dL L 09/17/25, 14:32 Social Determinants of Health Screening SDOH last assessed in clinic: 09/25/25 Will the patient participate in the screening?: Yes Do you worry about having a steady place to live?: No In the past 12 months, have you had to go without electric, gas, oil, or water in your home?: No Have you or anyone in your house had to go without enough food to eat?: No Has lack of reliable transportation kept you from medical appointments or from doing things needed for daily living?: No Has anyone in your support network made you feel unsafe for any reason?: No Does the patient want assistance with any of the above?: No Dictated By: Romy Ness MD DD/ [id number] Signed By: <Electronically signed by Romy Ness MD> 09/25/25 9229
[2025-09-27] VITALS (53 sets, daily range): BP systolic 81–95; BP diastolic 54–68; PULSE 69–92; TEMP 35.3–36.9; O2SAT 86–98; BMI 21.7
--- NOTE | 2025-09-27 12:47 | CT_ITS ---
The [address] [address] Patient Name: ISABEL RUBY MRN: [id number] date: 1955 Sex: M Assigned Patient Location: ER Current Patient Location: .MAIN Accession/Order Number: [id number] Exam Date: 09/27/2025 12:58 Report Date: 09/27/2025 13:31 At the request of: RUSSEL CHANDLER MD Procedure: CT cervical spine wo con CLINICAL DATA: Unwitnessed fall today. CT BRAIN WITHOUT CONTRAST: COMPARISON: None TECHNIQUE: Contiguous axial unenhanced images were obtained through the brain. This CT exam was performed using one or more following dose reduction techniques: Automated exposure control, adjustment of the mA and/or kV according to patient size, or use of iterative reconstruction technique. FINDINGS: There is generalized atrophy. The ventricles are within normal limits for size and position. Minor microvascular changes are noted. There are no additional areas of abnormal attenuation. There is no hemorrhage, mass effect or extra-axial collections. The calvarium is intact. The imaged paranasal sinuses and mastoid air cells are clear. There is minor vertebral and carotid siphon plaque. CT/CT cervical spine wo con IMPRESSION: ATROPHY AND SMALL VESSEL ISCHEMIC CHANGES. NO ACUTE INTRACRANIAL TRAUMA. CT CERVICAL SPINE WITHOUT CONTRAST WITH 3D RECONSTRUCTIONS: COMPARISON: None TECHNIQUE: Spiral axial unenhanced images were obtained through the cervical spine. Sagittal, coronal and 3D volume-rendered reconstructions were also reviewed. This CT exam was performed using one or more following dose reduction techniques: Automated exposure control, adjustment of the mA and/or kV according to patient size, or use of iterative reconstruction technique. FINDINGS: Levoscoliotic curvature may be positional. There is reversal of the normal cervical lordosis. There is minor anterolisthesis of C3 on C4 and C4 on C5 as well as C7 on T1 and T1 and T2. There is slight retrolisthesis of C5 on C6. No acute fractures are seen. There is disc space narrowing at C5-6 and C6-7 with endplate sclerosis. Endplate spurring and facet disease are present, right side greater than left. The atlantoaxial relationship is maintained. No prevertebral soft tissue swelling is seen. Carotid artery plaque is visualized. There are multiple enlarged cervical lymph nodes, right greater than left. The upper imaged lungs show no contributory findings. IMPRESSION: LOSS OF NORMAL CERVICAL CURVATURE. DEGENERATIVE CHANGES. NO ACUTE BONY INJURY. PROMINENT CERVICAL LYMPHADENOPATHY. FOLLOW-UP WILL BE NEEDED TO EXCLUDE THE POSSIBILITY OF NEOPLASM. Impression dictated by: Malissa Parada M.D. 09/27/2025 1:31 PM Dictation Location: [place] [address] Electronically authenticated by: [id number] Y Date: 09/27/2025 13:31
--- NOTE | 2025-09-27 12:47 | XR_ITS ---
The [address] [address] Patient Name: ISABEL RUBY MRN: [id number] date: 1955 Sex: M Assigned Patient Location: ER Current Patient Location: ED.MAIN Accession/Order Number: [id number] Exam Date: 09/27/2025 12:58 Report Date: 09/27/2025 13:09 At the request of: RUSSEL CHANDLER MD Procedure: XR chest 1V PORTABLE AP ERECT CHEST 1243 hours CLINICAL HISTORY: ams and shortness of breath. Unwitnessed fall today COMPARISON: 09/30/2022 The heart is within normal limits. There is no vascular congestion. The lungs, as visualized, are clear. There is no effusion or pneumothorax. The osseous structures are intact. XR/XR chest 1V IMPRESSION: NO ACUTE FINDINGS Impression dictated by: Malissa Parada M.D. 09/27/2025 1:09 PM Dictation Location: [place] [address] Electronically authenticated by: [id number] Y Date: 09/27/2025 13:09
--- NOTE | 2025-09-27 12:47 | CT_ITS ---
The [address] [address] Patient Name: ISABEL RUBY MRN: [id number] date: 1955 Sex: M Assigned Patient Location: ER Current Patient Location: .[facility] Accession/Order Number: [id number] Exam Date: 09/27/2025 12:58 Report Date: 09/27/2025 13:31 At the request of: RUSSEL CHANDLER MD Procedure: CT cervical spine wo con CLINICAL DATA: Unwitnessed fall today. CT BRAIN WITHOUT CONTRAST: COMPARISON: None TECHNIQUE: Contiguous axial unenhanced images were obtained through the brain. This CT exam was performed using one or more following dose reduction techniques: Automated exposure control, adjustment of the mA and/or kV according to patient size, or use of iterative reconstruction technique. FINDINGS: There is generalized atrophy. The ventricles are within normal limits for size and position. Minor microvascular changes are noted. There are no additional areas of abnormal attenuation. There is no hemorrhage, mass effect or extra-axial collections. The calvarium is intact. The imaged paranasal sinuses and mastoid air cells are clear. There is minor vertebral and carotid siphon plaque. CT/CT head/brain wo con IMPRESSION: ATROPHY AND SMALL VESSEL ISCHEMIC CHANGES. NO ACUTE INTRACRANIAL TRAUMA. CT CERVICAL SPINE WITHOUT CONTRAST WITH 3D RECONSTRUCTIONS: COMPARISON: None TECHNIQUE: Spiral axial unenhanced images were obtained through the cervical spine. Sagittal, coronal and 3D volume-rendered reconstructions were also reviewed. This CT exam was performed using one or more following dose reduction techniques: Automated exposure control, adjustment of the mA and/or kV according to patient size, or use of iterative reconstruction technique. FINDINGS: Levoscoliotic curvature may be positional. There is reversal of the normal cervical lordosis. There is minor anterolisthesis of C3 on C4 and C4 on C5 as well as C7 on T1 and T1 and T2. There is slight retrolisthesis of C5 on C6. No acute fractures are seen. There is disc space narrowing at C5-6 and C6-7 with endplate sclerosis. Endplate spurring and facet disease are present, right side greater than left. The atlantoaxial relationship is maintained. No prevertebral soft tissue swelling is seen. Carotid artery plaque is visualized. There are multiple enlarged cervical lymph nodes, right greater than left. The upper imaged lungs show no contributory findings. IMPRESSION: LOSS OF NORMAL CERVICAL CURVATURE. DEGENERATIVE CHANGES. NO ACUTE BONY INJURY. PROMINENT CERVICAL LYMPHADENOPATHY. FOLLOW-UP WILL BE NEEDED TO EXCLUDE THE POSSIBILITY OF NEOPLASM. Impression dictated by: Malissa Parada M.D. 09/27/2025 1:31 PM Dictation Location: [place] [address] Electronically authenticated by: [id number] Y Date: 09/27/2025 13:31
--- NOTE | 2025-09-27 12:48 | ECG_ITS ---
The [facility] Test Date: 2025-09-27 Pat Name: ISABEL RUBY Department: Room: - Gender: Male Building Contractor: : 1955 Requested By: [id number] Order Number: [id number] Reading MD: KRISTI DICKINSON M.D. Measurements Intervals [place] Rate: 82 P: 19 MA: 168 QRS: -44 QRSD: 102 T: 120 QT: 403 QTc: 471 Interpretive Statements SINUS RHYTHM LOW QRS VOLTAGE [QRS DEFLECTION < 0.5/1.0 mV IN LIMB/CHEST LEADS] INFERIOR MYOCARDIAL INFARCTION [40+ ms Q WAVE AND/OR ST/T ABNORMALITY IN II/aVF], PROBABLY OLD ANTEROSEPTAL MYOCARDIAL INFARCTION [40+ ms Q WAVE IN V1-V4], OF INDETERMINATE AGE MODERATE T-WAVE ABNORMALITY, CONSIDER LATERAL ISCHEMIA [-0.1+ mV T WAVE IN I/aVL/V5/V6] Abnormal ECG No previous ECG available for comparison Electronically Signed On 09-27-2025 18:46:15 EST by KRISTI DICKINSON M.D.
[2025-09-27 12:51] LABS: Hematocrit 30.9 % (42.0-54.0); Hemoglobin 10.5 g/dL (14.0-18.0); Mean Corpuscular HGB Conc 34.0 g/dL (29.9-35.2); Mean Corpuscular Hemoglobin 30.8 pg (25.9-34.0); Mean Corpuscular Volume 90.6 fL (80.0-94.0); Platelet Count 217 10^3/uL (150-450); Red Blood Count 3.41 10^6/uL (4.70-6.10); White Blood Count 3.9 10^3/uL (4.0-11.0)
--- OUTSIDE RECORDS SUMMARY | 2025-09-27 12:51 | XMS_ITS | Clinical Summary ---
Author Organization [facility] Healthcare Address [address] [place] [address] Care Team Providers Care Dampproofer Name Role Phone Unavailable Primary Care Provider [...] in the morning.05/12/2023ctive Active Problems ProblemNoted DateDiagnosed FdftUpnhswtcidxo26/15/2023ge-related nuclear cataract of both eyes07/21/2023 Family History Medical HistoryRelationNameCommentsCataractsBrotherHypertensionBrother HypertensionFatherCataractsMotherHypertensionMotherHypertensionSisterRelation NameStatusCommentsBrotherFatherMotherSister Social History Tobacco UseTypesPacks/DayYears UsedDateSmoking Tobacco: FormerCigarettes Smokeless Tobacco: Never Tobacco Cessation:Counseling Given: Not Answered Sex and Gender InformationValueDate RecordedSex Assigned at BirthNot on file Legal TyxHxdp2406/30/2023 9:29 AM EDTGender IdentityNot on fileSexual Orientation Not on file Plan of Treatment Not on file Insurance
--- OUTSIDE RECORDS SUMMARY | 2025-09-27 12:51 | XMS_ITS | Patient Health Record ---
Author Organization [facility] Address [address] [place] [address] Care Team Providers Care Plisse Machine Operator Helper Name Role Phone Angeline Sewell Primary Care Provider Reason For Referral No Information Plan Of Treatment No Information
--- OUTSIDE RECORDS SUMMARY | 2025-09-27 12:51 | XMS_ITS | Encounter Summary ---
Author Organization [facility] Address [address] [place] [address] Phone Care Team Providers Care Automatic Beading Lathe Operator Name Role Phone Thienro Nesbitt DO Primary Care Provider [phone] Reason for Visit * ReasonOnset DateCommentsMedical Advice/Rasgssjd09/26/2025 Encounter Details DateTypeDepartmentCare Team (Latest Contact Info)Kdysbmjlibf01/26/2025Telephone [facility] [address] [phone] Rupa Dior LPN Medical Advice/Question Social History Tobacco UseTypesPacks/DayYears UsedDateSmoking Tobacco: FormerCigarettesQuit: mokeless Tobacco: NeverAlcohol UseStandard Drinks/WeekCommentsNever0 (1 standard drink = 0.6 oz pure alcohol)Sex and Gender InformationValueDate RecordedSex Assigned at BirthNot on fileLegal DexXqgc29/26/2022 3:08 PM EST Gender IdentityNot on fileSexual OrientationNot on filedocumented as of this encounter Miscellaneous Notes * Telephone Encounter - Siobhan Frank LPN - 09/19/2025 8:43 AM EST Mailbox is full. Letter mailed. * Telephone Encounter - Siobhan Frank LPN - 09/17/2025 12:45 PM EST Attempted to reach patient. Mailbox is full * Telephone Encounter - Siobhan Frank LPN - 09/13/2025 2:53 PM EST Records are in chart. To Dr. Lexi Grady MD Spoke with . Patient was told not to take Lisinopril. This medication is not on his current medication list. state she has been on both Lisinopril 20 mg daily and Entresto . Patient has held his medication per himself for the past 10 days. States b/p 87/52. Hr 73. states he has been drinking and denies recent illness. To Dr. Lexi Grady MD 11/28 visit pending. * Telephone Encounter - Rupa Dior LPN - 09/12/2025 12:42 PM EST phoned that patient's blood pressure remains low even after recent ER visit, still taking all of his medications. Home blood pressures have averaged in the 77/42 range. States the patient is weak, fatigued and lightheaded. POV 11/28/2025. Seen in [facility] ER last week.Encourage to go back to the ERfor evaluation with blood pressures that low and with all the symptoms. Will request medical records. states she will be holding his medications until she hears otherwise. Please advise. To Dr. Lexi Grady MD\ * Telephone Encounter - Rupa Dior LPN - 09/04/2025 4:02 PM EST PCP-Dr. Nesbitt's office phoned that at last OV, patient's blood pressure was 84/47. Patient's only complaint is lightheadedness. States has been holding spironolactone, Entresto and carvedilol since that OV and has had blood pressures of 77/47, 76/60 and 70/54 with continued lightheadedness. Patient a dvised to go to [facility] ER for evaluation. FYI. To Dr. Lexi Grady MD documented in this encounter Plan of Treatment DateTypeDepartmentCare Team (Latest Contact Info)Aygqrxzodxc94/19/2026 9:00 AM ESTOffice Visit [facility] [address] [employer] [address] [place] [address] Lexi Grady MD [address] [facility] [address] [place] [address] documented as of this encounter Visit Diagnoses Not on filedocumented in this encounter Additional Health Concerns AssessmentNoted TimeA fall risk assessment has been completed for the patient 12/03/2024 9:25 AM ESTdocumented as of this encounter Care Teams Team MemberRelationshipSpecialtyStart DateEnd Date Thierno Nesbitt DO PCP - General10/10/19documented as of this encounter
--- OUTSIDE RECORDS SUMMARY | 2025-09-27 12:51 | XMS_ITS | Clinical Summary ---
Author Organization [facility] Address [address] [place] [address] Phone Care Team Providers Care Paradi Tender Name Role Phone Thierno Nesbitt Primary Care Provider [phone] Allergies No known active allergies Medications MedicationSigDispense [...] mg) by mouth once daily. 90 tablet /94732612/03/2025ctive spironolactone (Aldactone) 25 mg tablet Indications:Chronic systolic CHF (congestive heart failure), NYHA class 1 (Multi)Take 1 tablet (25 mg) by mouth once daily. 90 tablet 5Active carvedilol (Coreg) 12.5 mg tablet Indications:Hypertension, unspecified typeTake 1 tablet (12.5 mg) by mouth 2 times a day. 180 tablet ctive Active Problems ProblemNoted DateDiagnosed DateBMI 26.0-26.9,adult12/03/2024Stage 3a chronic kidney ltryxxo8112/03/2024Nonischemic rfyrjownqdlfgi68/24/2025Medication course tjgrorx7312/03/2024Dilatation of thoracic aorta12/03/2024hronic systolic CHF (congestive heart failure), NYHA class Mixed rbfisveyzxkhmm96/26/2024 Primary laxblknsrntb09/26/2024Former mqthoh2712/05/2023 Encounters DateTypeDepartmentCare QuouKcdzreztmmu04/26/2025Scanned Document [facility] [address] [place] [id number] Scanning, Generic Provider 09/04/2025Telephone [facility] [place] [facility] [address] [facility] [address] [place] [address] Rupa Dior LPN Medical Advice/Vgjputrr14/25/2025Scanned Document [facility] [address] [place] [phone] Scanning, Generic Provider 07/11/[address] [place] [address] Siobhan Frank LPN Hypertension, unspecified typefrom Last 3 Months Immunizations ImmunizationAdministration DatesNext DueInfluenza Whole07/26/2008Influenza, Seasonal, Quadrivalent, Xvfyknypyc24/16/2022Influenza, Ewipkozhkmj96/11/2023, 09/24/2022neumococcal conjugate vaccine, 20-valent (PREVNAR 20)09/26/2023 Family History Medical HistoryRelationNameCommentsHeart diseaseBrotherHeart diseaseFatherHeart diseaseMotherRelationNameStatusCommentsBrotherFatherMother Social History Tobacco UseTypesPacks/DayYears UsedDateSmoking Tobacco: FormerCigarettesQuit: mokeless Tobacco: Never Tobacco Cessation:Counseling Given: Not Answered Alcohol UseStandard Drinks/WeekCommentsNever0 (1 standard drink = 0.6 oz pure alcohol)Sex and Gender InformationValueDate RecordedSex Assigned at BirthNot on fileLegal ByzTbnh90/26/2022 3:08 PM ESTGender IdentityNot on fileSexual OrientationNot on file Last Filed Vital Signs Vital SignReadingTime TakenCommentsBlood Puwvkqzf262/5802 9:25 AM EST Akbsv433812/03/2024 9:25 AM ESTTemperature--Respiratory Rate--Oxygen Saturation-- Inhaled Oxygen Concentration--Oourkv08 kg (183 lb)12/03/2024 9:25 AM ESTHeight 177.8 cm (5' 10 )12/03/2024 9:25 AM ESTBody Mass Index26.26012/03/2024 9:25 AM EST Plan of Treatment DateTypeDepartmentCare Team (Latest Contact Info)Nazedxllvmv21/19/2026 9:00 AM ESTOffice Visit at [place] [facility] [address] [facility] [address] [place] [address] Lexi Grady MD [address] [facility] [address] [place], [place] [id number] Health MaintenanceDue DateLast DoneCommentsCT Mpejsairkumz41/12/1956reatinine Level1955FIT-DNA (Cologuard)1955FIT1955Lipid Panel1955 Medicare Annual Wellness Visit (AWV)1955Potassium Level1955 Dmyraqjucgkcm83/12/1956MMR Vaccines (1 of 1 - Standard series)1956Diabetes Gjbftcgls97/12/1974Hepatitis C Fepcmmmta58/12/1974CKD: Urine Protein Screening 1974DTaP/Tdap/Td Vaccines (1 - Tdap)1977PSA Prostate Cancer Ehlxjyglh56/12/2006RSV High Risk: (Elderly (60+) or Population) (1 - Risk 50-74 years 1-dose series)2005Zoster Vaccines (1 of 2)2005 Abdominal Aortic Aneurysm (AAA) Wphcyqkmi20/12/1118Fjmncbgplmsbeb42/24/2024 05/02/2023, 05/02/2023, 08/11/2022, Additional history existsCOVID-19 Vaccine (3 - season), 12/13/2020Influenza Vaccine (#1) 512/08/2023, 09/24/2022, 09/24/2022, Additional history exists Yyvgmnxdehf19/11/558823/4Colorectal Cancer Vlrruxhyl60/11/2034Pneumococcal XevojykWncxtqour86/18/2023HIB VaccinesAged OutNo longer eligible based on patient's age to complete this topicHPV VaccinesAged OutNo longer eligible based on patient's age to complete this topicHepatitis A VaccinesAged OutNo longer eligible based on patient's age to complete this topicHepatitis B VaccinesAged OutNo longer eligible based on patient's age to complete this topicIPV Vaccines Aged OutNo longer eligible based on patient's age to complete this topic Meningococcal VaccineAged OutNo longer eligible based on patient's age to complete this topicRotavirus VaccinesAged OutNo longer eligible based on patient's age to complete this topic Procedures Procedure NamePriorityDate/TimeAssociated DiagnosisCommentsOUTSIDE IMAGING SCAN 09/04/2025 RXCPOMUHQKKESW49/24/2023 8:13 AM EDT from Last 3 Months or Most Recently Relevant to Health Maintenance Results * OUTSIDE IMAGING SCAN (09/04/2025)Anatomical RegionLateralityModalityOther Narrative 09/04/2025 Ordered by an unspecified provider. Authorizing ProviderResult TypeResult StatusGeneric Provider ScanningOUTSIDE SCANFinal Result * Echocardiogram (05/02/2023 8:13 AM EDT)Specimen (Source)Anatomical Location / LateralityCollection Method / VolumeCollection TimeReceived Time05/02/2023 8:13 AM EDT Narrative SYNGO - 05/03/2023 5:52 PM EDT [address], Suite [facility], [place] [address] TRANSTHORACIC ECHOCARDIOGRAM REPORT Patient Name: ? ASHU Mancilla Physician: ?? [id number] Zeb Cárdenas MD Study Date: ? 05/02/2023 ?Referring Physician: ZEB CÁRDENAS MRN/PID: ?[id number] ? PCP: ? Thierno Nesbitt Accession/Order#: [id number] Department Location: [facility] Date of : ?1955 ?Fellow: Gender: ? M ?Nurse: Admit Date: ?Technology Services Manager: ? Asia Hart RDCS, RVT Height: ? 175.26 cm ?CC Report to: Weight: ? 77.57 kg ? Study Type: ?Echocardiogram BSA: ?1.93 m2 Blood Pressure: 122 /76 mmHg Diagnosis/ICD: I50.9-Heart failure, unspecified; R07.9-Chest pain, unspecified Indication: ?HTN, Hyperlipidemia, Former Smoker, Polycystic Kidney Disease, Nonischemic Cardiomyopathy Procedure/CPT: Echo Complete w Full Doppler-16286 Study Detail: The following Echo studies were [...] m/s ??(0.6-0.9m/s) PV Max PG: ??0.9 mmHg [id number] Zeb Cárdenas MD Electronically signed on 05/03/2023 at 5:52:44 PM Final Procedure Note Zeb Cárdenas MD - 05/03/[address], [address] [facility], [place] [address] TRANSTHORACIC ECHOCARDIOGRAM REPORT Patient Name: ASHU RUBY Reading Physician: [id number] Zeb Conde Study Date: 05/02/2023 Referring Physician: ZEB CÁRDENAS MRN/PID: [id number] PCP: Thierno Nesbitt Accession/Order#: [id number] Department Location: [facility] Date of : 1955 Fellow: Gender: M Nurse: Admit Date: Technology Services Manager: Asia Hart RDCS,RVT Height: 175.26 cm CC Report to: Weight: 77.57 kg Study Type: Echocardiogram BSA: 1.93 m2 Blood Pressure: 122 /76 mmHg Diagnosis/ICD: I50.9-Heart failure, unspecified; R07.9-Chest pain,unspecified Indication: HTN, Hyperlipidemia, Former Smoker, Polycystic KidneyDisease, Nonischemic Cardiomyopathy Procedure/CPT: Echo Complete w Full Doppler-[id number] Study Detail: The following Echo studies were [...] 0.5 m/s (0.6-0.9m/s) PV Max P.9 mmHg [id number] Zeb Cárdenas MD Electronically signed on 05/03/2023 at 5:52:44 PM Final Authorizing ProviderResult TypeResult StatusWillrajni Cárdenas MDCV ECHO PROCEDURESFinal ResultPerforming OrganizationAddressCity/State/ZIP CodePhone Number SYNGO from Last 3 Months or Most Recently Relevant to Health Maintenance Insurance Care Teams Team MemberRelationshipSpecialtyStart DateEnd Date Thierno Nesbitt DO [facility] - General10/10/19
[2025-09-27 13:20] LABS: Atypical Lymphocytes % Manual 3.0 %; Atypical Lymphocytes Abs Man 0.11; Basophils Abs Manual 0.00 10^3/uL (0.00-0.10); Basophils Percent Manual 0.0 % (0.2-2.0); Eosinophils Absolute Manual 0.00 10^3/uL (0.00-0.70); Eosinophils Percent Manual 0.0 % (0.9-7.0); Lymphocytes Absolute Manual 1.36 10^3/uL (1.20-3.80); Lymphocytes Percent Manual 35.0 % (20.5-60.0); Monocytes Absolute Manual 0.15 10^3/uL (0.30-0.80); Monocytes Percent Manual 4.0 % (1.7-12.0); Segmented Neut Absolute Manual 2.26 10^3/uL (1.4-6.5); Segmented Neutrophils % Manual 58.0 (43.0-75.0); Smudge Cells SEEN
[2025-09-27 13:23] LABS: Alanine Aminotransferase 32 U/L (16-63); Albumin Globulin Ratio 0.2; Albumin Level 1.5 g/dL (3.4-5.0); Alkaline Phosphatase 196 U/L (46-116); Anion Gap 14.4; Aspartate Amino Transferase 33 U/L (15-37); Blood Urea Nitrogen 59.0 mg/dL (7.0-18.0); Carbon Dioxide 22.2 mmol/L (21.0-32.0); Chloride 95 mmol/L (98-107); Estimated GFR (African America 30 (>=60 mL/min/1.73m^2); Estimated GFR (Non-African Ame 25 (>=60 mL/min/1.73m^2); Globulin 7.0 g/dL; Glucose 118 mg/dL (74-106); Potassium 4.6 mmol/L (3.5-5.1); Sodium 127 mmol/L (136-145); Total Protein 8.5 g/dL (6.4-8.2)
[2025-09-27 13:26] LABS: Calcium 13.2 mg/dL (8.5-10.1)
[2025-09-27] MEDS: 0.9 % SODIUM CHLORIDE 1,000 ML 1000 ML IV ×2 (13:35→14:30)
[2025-09-27 13:42] LABS: Lactate/Lactic Acid 3.1 mmol/L (0.4-2.0)
[2025-09-27 15:26] LABS: Glucose Urine UA NEGATIVE (NEGATIVE)
[2025-09-27 15:35] LABS: Cast Seen? NONE SEEN #/LPF (NONE SEEN); Crystals Seen? None Seen #/HPF (None Seen)
[2025-09-27 15:36] LABS: Urine Culture Indicated NO
[2025-09-27 16:12] LABS: Alanine Aminotransferase 29 U/L (16-63); Albumin Globulin Ratio 0.2; Albumin Level 1.4 g/dL (3.4-5.0); Alkaline Phosphatase 174 U/L (46-116); Anion Gap 9.3; Aspartate Amino Transferase 26 U/L (15-37); Blood Urea Nitrogen 55.0 mg/dL (7.0-18.0); Calcium 11.6 mg/dL (8.5-10.1); Carbon Dioxide 22.9 mmol/L (21.0-32.0); Chloride 95 mmol/L (98-107); Estimated GFR (African America 33 (>=60 mL/min/1.73m^2); Estimated GFR (Non-African Ame 28 (>=60 mL/min/1.73m^2); Globulin 6.3 g/dL; Glucose 101 mg/dL (74-106); Potassium 4.2 mmol/L (3.5-5.1); Total Protein 7.7 g/dL (6.4-8.2)
[2025-09-27 16:18] LABS: Sodium 123 mmol/L (136-145)
[2025-09-27 16:23] LABS: Lactate/Lactic Acid 2.7 mmol/L (0.4-2.0)
--- NOTE | 2025-09-27 17:22 | ECG_ITS ---
[facility] Test Date: 2025-09-27 Pat Name: ISABEL RUBY Department: Room: - Gender: Male Guest Relations Coordinator: : 1955 Requested By: [id number] Order Number: [id number] Reading MD: KRISTI DICKINSON M.D. Measurements Intervals [place] Rate: 87 P: 37 [place]: 143 QRS: -37 QRSD: 118 T: 0 QT: 404 QTc: 488 Interpretive Statements SINUS RHYTHM LOW QRS VOLTAGE [QRS DEFLECTION < 0.5/1.0 mV IN LIMB/CHEST LEADS] INFERIOR MYOCARDIAL INFARCTION [40+ ms Q WAVE AND/OR ST/T ABNORMALITY IN II/aVF], PROBABLY OLD ANTEROSEPTAL MYOCARDIAL INFARCTION [40+ ms Q WAVE IN V1-V4], OF INDETERMINATE AGE Abnormal ECG Compared to ECG 09/27/2025 13:51:55 No significant changes Electronically Signed On 09-27-2025 18:48:00 EST by KRISTI DICKINSON M.D.
--- NOTE | 2025-09-27 17:28 | ED_ITS ---
HPI - Weakness General Chief complaint: Weakness Stated complaint: FALL NAUSEA Time Seen by Provider: 09/27/25 12:39 Source: patient Mode of arrival: ambulance Limitations: no limitations History of Present Illness HPI Narrative: The patient is a 69 years old male who have a history of hypertension as well as recent workup being done for possible lymphoma, patient has been having lymph node in his axilla as well as in his inguinal area and he have a workup to be done by a biopsy in [facility] that he did not schedule yet, the patient to us by the family for main concern of generalized weakness mention to some confusion that they noted this morning, the patient has been having low blood pressure according to the at the bedside is always in the 80s for the last at least few weeks and his primary care knows about this as they stopped his hypertension medication, patient has been having no appetite and decreased p.o. intake for the last few days as well as generally weak and tired This morning at 2 AM the patient had a fall when he was standing to go to the bathroom but he did not hit his head and he just fell to his knees after that the patient was noted by the to be confused because he started talking about the roof of the house falling and that she need to go and get help The patient at the moment denies any complaint except for the generalized weakness and tiredness Related Data Allergies Allergy/AdvReac Type Severity Reaction Status Date / Time No Known Drug Allergies Allergy Verified 09/27/25 12:10 Review of Systems ROS Status of ROS 10 or more systems reviewed and unremark able except as noted in history and below PFSH PFSH Social History Little interest or pleasure in doing things: not at all Feeling down, depressed, or hopeless: not at all Exam Narrative Exam Narrative: Nurses notes and vital signs reviewed and patient is not hypoxic. General: Well-appearing and in no apparent distress. Skin: Warm, dry, no pallor noted. No rash. Head: Normocephalic, atraumatic. Neck: Supple, non-tender. Eye: Pupils are equal, round and EOMI. No scleral icterus. Ears, Nose, Mouth, and Throat dehydrated oral mucosa Cardiovascular: Regular Rate and Rhythm without murmur, gallop or rub. Respiratory: No accessory muscle use or respiratory distress. Lungs are clear to auscultation, no wheezing, rales or rhonchi Musculoskeletal: normal ROM, no calf or popliteal tenderness, no lower extremity edema/swelling GI: Abdomen is soft, non-distended. Normal bowel sounds. No masses appreciated. No tenderness to palpation. No rebound, guarding, or rigidity noted. Neurological: A&O x4. No cranial nerve dysfunction observed. No truncal ataxia. Moves all extremities. Sensation intact. Psychiatric: Cooperative and interactive. Normal mood and affect. Constitutional Vital Signs, click to edit/add: Last Vital Signs Temp 95.6 F L 09/27/25 12:10 Pulse 83 09/27/25 16:00 Resp 22 H 09/27/25 16:00 BP 85/62 L 09/27/25 15:45 Pulse Ox 97 09/27/25 16:00 O2 Del Method Room Air 09/27/25 12:10 Course Vital Signs Vital signs: Vital Signs Blood Pressure 88/66 L 09/27/25 12:05 Temperature 95.6 F L 09/27/25 12:10 Pulse Rate 83 09/27/25 16:00 Respiratory Rate 22 H 09/27/25 16:00 Blood Pressure 85/62 L 09/27/25 15:45 Pulse Oximetry 97 09/27/25 16:00 Oxygen Delivery Method Room Air 09/27/25 12:10 MDM - Weakness MDM Narrative Medical decision making narrative: Upon arrival is found to be hypotensive and his blood pressure in the 70s I did notice that the patient also had a EKG showing low voltage and no ST elevation or depression heart rate was 82 The patient denies any chest pain at any time he had a CT head and CT cervical spine that showed no acute pathology X-ray of the chest showed no acute pathology as well CBC have mild leukopenia and chemistry was showing that the patient have hyponatremia and hypercalcemia with calcium to be corrected above 14 Patient also have albumin of 1.5 and his troponin was mildly elevated Repeated troponin gave the same result of 124 and 125 The patient had no chest pain at any time and his troponin elevation mostly secondary to CKD he had a baseline of 2.2 creatinine at baseline today it was 2.5 The patient after 2 L of fluid his blood pressure is now in the 90s systolic but his hyponatremia got worse with a sodium of 123 And his calcium right now is better although corrected will be above 13 I initially discussed the case with who advised to send the patient to [facility] for further evaluation especially by oncology I did discuss the case with Dr. Molina accepted the patient and recommended co ntinuing the hydration Normal saline to be continued right now at 500 cc/h Actiq acid also was found to be elevated with no source of infection detected within normal chest x-ray and urinalysis and the patient lactic acid mildly corrected after 2 L will continue hydration Lab Data Labs: Lab Results 09/27/25 09/27/25 09/27/25 Range/Units 12:38 15:18 15:43 WBC 3.9 L (4.0-11.0) 10^3/uL RBC 3.41 L (4.70-6.10) 10^6/uL Hgb 10.5 L (14.0-18.0) g/dL Hct 30.9 L (42.0-54.0) % MCV 90.6 (80.0-94.0) fL MCH 30.8 (25.9-34.0) pg MCHC 34.0 (29.9-35.2) g/dL RDW 15.2 H (11.0-15.0) % Plt Count 217 (150-450) 10^3/uL MPV 10.3 (9.5-13.5) fL Seg Neuts % (Manual) 58.0 (43.0-75.0) Lymphocytes % (Manual) 35.0 (20.5-60.0) % Atypical Lymphs % (Man) 3.0 % Monocytes % (Manual) 4.0 (1.7-12.0) % Eosinophils % (Manual) 0.0 L (0.9-7.0) % Basophils % (Manual) 0.0 L (0.2-2.0) % Neutrophils # (Manual) 2.26 (1.4-6.5) 10^3/uL Lymphocytes # (Manual) 1.36 (1.20-3.80) 10^3/uL Abs Atypical Lymphs Man 0.11 Monocytes # (Manual) 0.15 L (0.30-0.80) 10^3/uL Eosinophils # (Manual) 0.00 (0.00-0.70) 10^3/uL Basophils # (Manual) 0.00 (0.00-0.10) 10^3/uL Smudge Cells Seen Sodium 127 L 123 L* (136-145) mmol/L Potassium 4.6 4.2 (3.5-5.1) mmol/L Chloride 95 L 95 L (98-107) mmol/L Carbon Dioxide 22.2 22.9 (21.0-32.0) mmol/L Anion Gap 14.4 9.3 BUN 59.0 H 55.0 H (7.0-18.0) mg/dL Creatinine 2.59 H 2.36 H (0.70-1.30) mg/dL Est GFR ( Amer) 30 L 33 L (>=60 mL/min/1.73m^2) Est GFR (Non-Af Amer) 25 L 28 L (>=60 mL/min/1.73m^2) BUN/Creatinine Ratio 22.8 23.3 Glucose 118 H 101 (74-106) mg/dL Lactate 3.1 H* 2.7 H* (0.4-2.0) mmol/L Calcium 13.2 H* 11.6 H (8.5-10.1) mg/dL Total Bilirubin 1.6 H 1.4 H (0.2-1.0) mg/dL AST 33 26 (15-37) U/L ALT 32 29 (16-63) U/L Alkaline Phosphatase 196 H 174 H (46-116) U/L Troponin I High Sens 124.9 H* 125.2 H* (4.0-76.1) pg/mL Total Protein 8.5 H 7.7 (6.4-8.2) g/dL Albumin 1.5 L 1.4 L (3.4-5.0) g/dL Globulin 7.0 6.3 g/dL Albumin/Globulin Ratio 0.2 0.2 Urine Color Yellow (YELLOW) Urine Clarity Clear (CLEAR) Urine pH 5.5 (5.0-9.0) Ur Specific [place] 1.025 (1.005-1.025) Urine Protein Trace (NEG/TRACE) mg/dL Urine Glucose (UA) Negative (NEGATIVE) mg/dL Urine Ketones Negative (NEGATIVE) mg/dL Urine Occult Blood Trace-i (NEGATIVE) Urine Nitrite Negative (NEGATIVE) Urine Bilirubin Negative (NEGATIVE) Urine Urobilinogen 1.0 (0.2-1.0) EU/dL Ur Leukocyte Esterase Negative (NEGATIVE) Urine RBC 0-2 (0-2) #/HPF Urine WBC 0-2 A (NONE SEEN) #/HPF Ur Squamous Epith Cells Few A (NONE/RARE) #/LPF Urine Crystals None seen (None Seen) #/HPF Urine Bacteria Trace A (NONE SEEN) #/HPF Urine Casts None seen (NONE SEEN) #/LPF Urine Mucus None seen (NONE SEEN) Ur Culture Indicated? No Discharge Plan Discharge Chief Complaint: Weakness Clinical Impression: Hyponatremia, Hypercalcemia, Confusion, Hypotension Patient Disposition: [facility] Time of Disposition Decision: 17:34
[2025-09-27] MEDS: 0.9 % SODIUM CHLORIDE 1,000 ML 500 ML IV (17:36)
--- NOTE | 2025-09-27 19:10 | PC.NURSE ---
i walked into this patient's room to find this patient awake and alert sitting upright on the bed, and his 2 family members sitting in the room. i introduced myself to this patient and his family members, and updated the transportation will be here around 7:30 pm t transport this patient to [facility] to room 4024. this patient and nor family members voices no concerns, needs and this patient shows no signs of distress
--- NOTE | 2025-09-27 20:19 | PC.NURSE ---
i called [facility] [phone] and spoke to nurse Lissa and gave her a patient report. this patient go to room 4024. this patient's family took this patient's belongings. this patient awake and alert and voices no concerns, needs and shows no signs of distress.
== END 2025-09-27 20:16 | disposition short-term general hospital (02) ==
PROVIDERS: Emergency Provider Emergency Medicine; PCP Internal Medicine
DX: E87.1 Hypo-osmolality and hyponatremia (principal); E83.52 Hypercalcemia; I95.9 Hypotension, unspecified; R41.0 Disorientation, unspecified
CPT/HCPCS: 36415; 70450; 71045; 72125; 76376; 80053; 81001; 83605; 84484; 85007; 85027; 93005; 96360; 96361; 99285